=== PATIENT | male | born 1950 | race Caucasian/White ===

== ENCOUNTER → 2023-03-22 06:22 | Day surgery (SDC) | payer MEDICARE, SELFPAY | LOC: GI 06:22 | PROVIDERS: ATTENDING PHYSICIAN Internal Medicine Gastroenterology | DX: K29.70 Gastritis, unspecified, without bleeding (principal); K20.90 Esophagitis, unspecified without bleeding; K44.9 Diaphragmatic hernia without obstruction or gangrene; Z87.19 Personal history of other diseases of the digestive system | CPT/HCPCS: 43239; 88305 ==

== ENCOUNTER 2023-06-07 10:05 | Emergency (ER) | payer MEDICARE, SELFPAY ==
[2023-06-07 10:11] VITALS: BP 134/70
--- NOTE | 2023-06-07 11:34 | ED.GENMED ---
History of Present Illness
General
Chief Complaint: Back Pain
Source: patient
Time Seen by Provider: 06/07/23 11:17
Travel History
Have you had any contact with someone who has COVID-19?: No
Do you have any symptoms of coronavirus? Fever > 100 degrees, chills, cough, shortness of breath, sore throat, loss of taste or smell, muscle aches, or headache?: No
History of Present Illness
History of Present Illness:
73-year-old male presents complaining of ongoing left lower back pain starting 4 weeks ago after lifting a gas grill. He has been doing physical therapy through the family doctor without relief. It does tend to get better after stretching. No leg
discomfort. No bowel or bladder dysfunction. No fever. No other complaints at this time.
Past History
Past History
ED Past Medical History: Cancer (prostate, s/p xrt), GERD, HTN and Hypercholesterolemia
Social History
Tobacco: Non-smoker
Personal:
Living: with family
Phy Exam
Physical Exam
Physical Exam:
General: Well-appearing comfortable male no acute respiratory distress
HEENT: Normocephalic atraumatic
Musculoskeletal exam: Lumbar spine is nontender over the midline. Good range of motion bilateral lower extremities
Neurologic: Good sensation bilateral lower extremities. Bilateral patellar reflexes are 2+ negative straight leg raise normal gait
Vascular: 2+ dorsalis pedis pulse bilateral feet
Skin is warm no rash or lesion
Course
Orders/Labs/Results
Orders:
Orders
06/07/23 11:04
Lumbar Spine Complete, 4 View [CR Lumbar Spine Comp Min 4 Vw*] Urgent
Comment:
Reason For Exam: lower back pain
Vital Signs
Initial and Last Documented VS:
Initial Vital Signs
Temp Pulse Resp BP Pulse Ox
97.9 F 74 18 134/70 98
06/07/23 10:11 06/07/23 10:11 06/07/23 10:11 06/07/23 10:11 06/07/23 10:11
Last Documented Vital Signs
Temp Pulse Resp BP Pulse Ox
97.9 F 74 18 134/70 98
06/07/23 10:11 06/07/23 10:11 06/07/23 10:11 06/07/23 10:11 06/07/23 10:11
MDM/Problems Addressed
Differential Diagnosis Includes:
Low back pain after lifting heavy item. Consider lumbar strain versus compression fracture versus degenerative disc disease
No neurologic findings or red flags to suggest cauda equina. No fever to suggest infectious source. Physical therapy not helping
X-rays lumbar spine pending.
*Critical Care Note
Total Time (30-74mins, 75-104mins- exclusive of procedures): Not Applicable
Update Note
Update Note:
X-rays personally visualized demonstrate anterior listhesis of L5 on S1. Patient is neurologically intact he is ambulatory. Suspect this may be a source of the patient's back discomfort. Recommended follow-up with orthopedics. Stable for
discharge
ED Attending Note
-
Portions of this chart may have been created with voice recognition software.� Occasional wrong word or��sound alike� substitutions may have occurred due to the inherent limitations of voice recognition software.
Discharge Plan
Departure
Patient Disposition: Home (Routine Discharge)
Date of Disposition: 06/07/23
Time of Disposition: 12:37
Patient with high blood pressure during this ER visit?: No
Discharge Problem:
Low back pain
Instructions: Low Back Pain (DC)
Referrals:
Christiano Etienne, [Family Provider] -
Chance Chatman MD [Active] -
Activity Restrictions/Additional Instructions:
Please follow-up with orthopedics for further evaluation. Continue with stretches and Tylenol.
Interventions
Interventions:
*Risk Screen - Suicide Last Done: 06/07/23 11:15
*General Assessment Last Done: 06/07/23 11:15
*Neglect/Abuse Screening Last Done: 06/07/23 11:15
*ED COVID-19 Vaccine History Last Done: 06/07/23 10:11
ED-Musculoskeletal Assessment Last Done: 06/07/23 11:15
Discharge Date and Time
Print Language: CITIZEN OF [place]
[2023-06-07 12:46] VITALS: BP 128/64
== END 2023-06-07 12:47 | disposition home or self-care (01) ==
LOC: EMR 10:05
PROVIDERS: EMERGENCY PHYSICIAN Emergency Medicine; FAMILY PHYSICIAN Internal Medicine
DX: M54.50 Low back pain, unspecified (principal)
CPT/HCPCS: 99283; 72110

== ENCOUNTER → 2023-06-13 07:07 | Outpatient (REF) | payer MEDICARE, SELFPAY | LOC: MRI 07:07 | PROVIDERS: ATTENDING PHYSICIAN Pain Medicine Interventional Pain Medicine; FAMILY PHYSICIAN Internal Medicine | DX: M54.16 Radiculopathy, lumbar region (principal) | CPT/HCPCS: 72148 ==

== ENCOUNTER → 2023-07-23 15:10 | Outpatient (REF) | payer MEDICARE, SELFPAY | LOC: HWRAD 15:10 | PROVIDERS: ATTENDING PHYSICIAN Internal Medicine | DX: Z13.820 Encounter for screening for osteoporosis (principal); M81.0 Age-related osteoporosis without current pathological fracture | CPT/HCPCS: 77080 ==

== ENCOUNTER → 2023-11-01 14:51 | Outpatient (REF) | payer MEDICARE, SELFPAY ==
[2023-11-01 16:14] LABS: % Basophils 0.9 % (0-2); % Eosinophils 3.1 % (0-6); % Immature Granulocytes 0.6 % (0-0.5); % Lymphocytes 14.5 % (20.5-51.1); % Monocytes 16.9 % (1.7-9.3); Absolute Eosinophils 0.1 10^3/uL (0-0.7); Absolute Lymphocytes 0.5 10^3/uL (1.2-3.4); Absolute Monocytes 0.6 10^3/uL (0.1-0.6); Absolute Neutrophils 2.1 10^3/uL (1.4-6.5); Hematocrit 28.5 % (39.0-52.0); Hemoglobin 9.6 g/dL (13.0-18.0); Mean Corp Hgb Conc. 33.7 g/dL (33.0-37.0); Mean Corpuscular Hgb 27.7 pg (27.0-31.0); Mean Corpuscular Volume 82.4 fL (80.0-94.0); Mean Platelet Volume 8.8 fL (7.4-10.4); Nucleated Red Blood Cells % 0 % (-); Platelet Count 378 10^3/uL (130-400); Red Blood Cell Count 3.46 10^6/uL (4.70-6.10); Red Cell Dist. Width 15.7 % (11.5-14.5); White Blood Cell Count 3.3 10^3/uL (4.8-10.8)
[2023-11-01 16:54] LABS: Erythrocyte Sed Rate 25 mm/hour (0-20)
== END ==
LOC: REG 14:51
PROVIDERS: ATTENDING PHYSICIAN Physician Assistant Medical; FAMILY PHYSICIAN Family Medicine
DX: Z96.641 Presence of right artificial hip joint (principal)
CPT/HCPCS: 36415; 85025; 85652; 86140

== ENCOUNTER → 2023-11-05 09:21 | Outpatient (REF) | payer MEDICARE, SELFPAY ==
[2023-11-05 09:53] LABS: % Basophils 0.7 % (0-2); % Eosinophils 2.6 % (0-6); % Immature Granulocytes 1.9 % (0-0.5); % Lymphocytes 13.9 % (20.5-51.1); % Neutrophils 63.9 % (42.2-75.2); Absolute Eosinophils 0.1 10^3/uL (0-0.7); Absolute Immature Granulocytes 0.1 10^3/uL (0-0.05); Absolute Lymphocytes 0.6 10^3/uL (1.2-3.4); Absolute Monocytes 0.7 10^3/uL (0.1-0.6); Absolute Neutrophils 2.7 10^3/uL (1.4-6.5); Hemoglobin 10.7 g/dL (13.0-18.0); Mean Corp Hgb Conc. 34.5 g/dL (33.0-37.0); Mean Corpuscular Hgb 28.8 pg (27.0-31.0); Mean Corpuscular Volume 83.3 fL (80.0-94.0); Mean Platelet Volume 8.3 fL (7.4-10.4); Nucleated Red Blood Cells % 0 % (-); Platelet Count 344 10^3/uL (130-400); Red Blood Cell Count 3.72 10^6/uL (4.70-6.10); White Blood Cell Count 4.2 10^3/uL (4.8-10.8)
[2023-11-05 10:19] LABS: Erythrocyte Sed Rate 29 mm/hour (0-20)
== END ==
LOC: REG 09:21
PROVIDERS: ATTENDING PHYSICIAN Physician Assistant Medical; FAMILY PHYSICIAN Family Medicine
DX: Z96.641 Presence of right artificial hip joint (principal)
CPT/HCPCS: 36415; 85025; 85652; 86140

== ENCOUNTER 2024-01-11 09:55 | Inpatient (IN) | payer MEDICARE, SELFPAY ==
[2024-01-11 05:18] VITALS: BP 101/63
[2024-01-11 06:33] LABS: % Basophils 0.7 % (0-2); % Eosinophils 2.7 % (0-6); % Immature Granulocytes 1.3 % (0-0.5); % Lymphocytes 8.7 % (20.5-51.1); % Monocytes 13.1 % (1.7-9.3); % Neutrophils 73.5 % (42.2-75.2); Absolute Eosinophils 0.1 10^3/uL (0-0.7); Absolute Immature Granulocytes 0.1 10^3/uL (0-0.05); Absolute Lymphocytes 0.4 10^3/uL (1.2-3.4); Absolute Monocytes 0.6 10^3/uL (0.1-0.6); Absolute Neutrophils 3.3 10^3/uL (1.4-6.5); Hematocrit 32.8 % (39.0-52.0); Hemoglobin 11.3 g/dL (13.0-18.0); Mean Corp Hgb Conc. 34.5 g/dL (33.0-37.0); Mean Corpuscular Hgb 27.6 pg (27.0-31.0); Mean Platelet Volume 8.6 fL (7.4-10.4); Nucleated Red Blood Cells % 0 % (-); Platelet Count 324 10^3/uL (130-400); Red Cell Dist. Width 12.7 % (11.5-14.5); White Blood Cell Count 4.5 10^3/uL (4.8-10.8)
[2024-01-11 06:48] LABS: ALT (SGPT) 17 U/L (0-50); AST (SGOT) 43 U/L (17-59); Albumin 3.4 g/dl (3.5-5.0); Alkaline Phosphatase 116 U/L (38-126); Blood Urea Nitrogen 25 mg/dl (9-20); Calcium 13.6 mg/dl (8.4-10.2); Carbon Dioxide 30 mmol/L (22-30); Chloride 89 mmol/L (98-107); Glucose 90 mg/dl (70-99); Magnesium 1.4 mg/dl (1.6-2.3); Phosphorus 3.4 mg/dl (2.5-4.5); Potassium 4.7 mmol/L (3.5-5.1); Sodium 129 mmol/L (135-145); Total Bilirubin 0.6 mg/dl (0.2-1.3); eGFR > 60.00
--- NOTE | 2024-01-11 07:07 | ED.GENMED ---
History of Present Illness
General
Chief Complaint: Abnormal Lab Value
Source: patient
Exam Limitations: none
Time Seen by Provider: 01/11/24 06:04
Nursing documentation reviewed up to this point in time: agreed with
History of Present Illness
History of Present Illness:
Pt presents to ED secondary to progressive weakness and weight loss over the past 2 months with decreased appetite. Pt followed up with his PCP where an outpatient blood work revealed elevated calcium level. Pt subsequently referred to ED for
further evaluation and treatment. Of note, patient is s/p hip replacement 2 months ago and had been taking calcium tablets due to osteoporosis until 3 months ago when it was discontinued at the recommendation of PCP. Denies fever. Denies recent
illness. Denies n/v/d. Denies recent travel. Denies previous history of similar symptoms. In addition, patient is c/o bilateral painless lump/swelling in his groin, worse when standing up, but resolves when laying down.
Past History
Past History
ED Past Medical History: Cancer (prostate, s/p xrt), GERD, HTN and Hypercholesterolemia
Social History
Tobacco: Non-smoker
Personal:
Living: with family
Review of Systems
Review of Systems
Allergies reviewed?: Yes
All Other Systems: ROS reviewed and negative except as documented in HPI and ROS
Constitutional: Reports weight loss; Denies fever, fatigue or chills
EENT: Reports no symptoms
Respiratory: Reports no symptoms
Cardiac: Reports no symptoms
ABD/GI: Reports no symptoms; Denies vomiting or diarrhea
: Reports no symptoms
Musculoskeletal: Reports no symptoms
Skin: Reports other (groin swelling)
Neurological: Reports weakness; Denies dizzy or headache
Phy Exam
Physical Exam
Physical Exam:
Physical Exam
General: no apparent distress, not acutely ill. afebrile. thin appearing
Head: nc/at. eomi
Neck: supple. no meningeal signs.
Heart: s1/s2 regular rate and rhythm, no murmur. equal radial pulses.
Lungs: no acute respiratory distress. clear bilaterally
Abdomen: normal bowel sounds. not tender.
Neuro: alert and oriented. no focal neurological deficits
Skin: no rash
Psychiatric: well kept. interactive and cooperative
Extremities: no edema. no calf tenderness.
Course
Orders/Labs/Results
Orders:
Orders
01/11/24 06:21
CBC/With Diff [Complete Blood Count/With Diff] Urgent
Comprehensive Metabolic Panel Urgent
Magnesium Urgent
Phosphorus Urgent
01/11/24 06:57
0.9% Sodium Chloride 500 ml [Nss] 500 ml IV BOLUS
01/11/24 09:06
Magnesium Sulfate 2 Gram/50 ml [Magnesium Sulfate] 2 gram in 50 ml IV NOW
01/11/24 09:15
0.9% Sodium Chloride 1000 ml [Nss] 1,000 ml IV 100 mls/hr
01/11/24 09:41
CT Chest/abd/pel W Iv Cont Routine
Comment:
Reason For Exam: ?cancer, hx of prostate can now w/ Ca 13.6
01/11/24 09:42
Admit/Transfer Patient As Directed
Co-Sign Provider:
Level of Care: Inpatient admission
Assign to:: Medical/Surgical
Physician / Group: sukhjinder iniguez
Diagnosis: Hypercalcemia
Reason for Hospitalization: Hypercalcemia
Expected length of stay greater than two midnights?: Yes
ELOS- Estimated Length of Stay in days: 2
I certify the patient meets the requirements for IP care: Yes
PRN Pain Medication Management As Directed
May give lesser potent ordered pain med per pt: Yes
preference::
Protocol:: Medication orders for pain may be administered in a
manner that supports deferring to patient preference
when the pt is:
- Requesting an ordered lesser potent pain medication.
Least to most potent pain medications are defined
as: acetaminophen < NSAID < tramadol < opioids
(morphine, oxycodone, hydromorphone).
- Requesting a lesser dose of the same medication IF
ORDERED.
- Requesting a less intrusive route of administration
if both routes are prescribed by the provider (PO <
IV).
01/11/24 09:44
Code Status As Directed
Resuscitation Status: Do not resuscitate
Reached after discussion with pt or family/Healthcare POA: Yes
01/11/24 09:45
DNR Bracelet Application ONCE
01/11/24 09:51
Iohexol [Omnipaque] See Protocol PO NOW STA
01/11/24 11:19
Intact PTH Includes Calcium Urgent
Ionized Calcium Urgent
PTH Related Peptide LC-MS/MS [S] Urgent
Abnormal Lab Results
01/11/24
06:21
WBC 4.5 L 10^3/uL
(4.8-10.8)
RBC 4.10 L 10^6/uL
(4.70-6.10)
Hgb 11.3 L g/dL
(13.0-18.0)
Hct 32.8 L %
(39.0-52.0)
Abs Immat Gran (auto) 0.1 H 10^3/uL
(0-0.05)
Absolute Lymphs (auto) 0.4 L 10^3/uL
(1.2-3.4)
Immature Gran % 1.3 H %
(0-0.5)
Lymphocytes % 8.7 L %
(20.5-51.1)
Monocytes % 13.1 H %
(1.7-9.3)
Sodium 129 L mmol/L
(135-145)
Chloride 89 L mmol/L
(98-107)
BUN 25 H mg/dl
(9-20)
Calcium 13.6 H* mg/dl
(8.4-10.2)
Magnesium 1.4 L mg/dl
(1.6-2.3)
Total Protein 6.0 L g/dl
(6.3-8.2)
Albumin 3.4 L g/dl
(3.5-5.0)
01/11/24 06:21
01/11/24 06:21
Vital Signs
Initial and Last Documented VS:
Initial Vital Signs
Temp Pulse Resp BP Pulse Ox
97.7 F 88 18 101/63 99
01/11/24 05:18 01/11/24 05:18 01/11/24 05:18 01/11/24 05:18 01/11/24 05:18
Last Documented Vital Signs
Temp Pulse Resp BP Pulse Ox
97.7 F 68 19 101/63 95
01/11/24 05:18 01/11/24 08:00 01/11/24 08:00 01/11/24 05:18 01/11/24 08:00
MDM/Problems Addressed
MDM/Problems Addressed:
Blood work reviewed, consistent with hypercalcemia. Patient's calcium level was 10.4 in December 2023. In light of patient's overall symptoms, including fatigue/weakness/unintentional weight loss, patient will be admitted for further evaluation
treatment.
*Critical Care Note
Total Time (30-74mins, 75-104mins- exclusive of procedures): Not Applicable
ED Attending Note
-
Portions of this chart may have been created with voice recognition software.� Occasional wrong word or��sound alike� substitutions may have occurred due to the inherent limitations of voice recognition software.
Discharge Plan
Departure
Patient Disposition: Admit
Date of Disposition: 01/11/24
Time of Disposition: 07:19
Presentation/result/management discussed w/ accepting MD/DO: Hospitalist
Discharge Problem:
Hypercalcemia
Interventions
Interventions:
*Risk Screen - Suicide Last Done: 01/11/24 05:18
*General Assessment Last Done: 01/11/24 05:18
*Neglect/Abuse Screening Last Done: 01/11/24 05:18
ED- Fall Risk Assessment Last Done: 01/11/24 05:18
*ED COVID-19 Vaccine History Last Done: 01/11/24 05:28
[2024-01-11] MEDS: NSS 500 IV (07:24)
--- NOTE | 2024-01-11 09:14 | HPS.HSE ---
Family Physician
-
Family Physician: Yoly Roth
Chief Complaint
-
Abnormal lab values
History of Present Illness
74-year-old male with a past medical history of hypertension, hyperlipidemia, GERD, osteoarthritis, and prostate cancer status post radiation was told by his PCP to come to the ER for abnormal lab values. Patient reports having a 2-3-week history
of weakness. He has lost 15 pounds. Reports early satiety and night sweats. No fever. No chest pain, no shortness of breath. No nausea, no vomiting. No black or bloody stools. No dysuria.
Medical History
Past Medical History
Past Medical History: Reports Other
Additional Past Medical History:
Hyponatremia, osteoporosis, arthritis, prostate cancer s/p XRT, basal cell cancer removed from the nose, GERD, Vargas's esophagus, hiatal hernia, hyperlipidemia, L3 fracture
Past Surgical History: Reports Other
Additional Past Surgical History:
Right total hip arthroplasty, Moh's surgery for basel cell of the nose, hernia repair
Social History
Tobacco: Former Smoker
Alcohol: Former
Drug: None
Personal:
Living: With Family
Family History
Family History: Not pertinent
Allergies / Home Medications
Allergies reflects when Allergies were last updated in [facility].
Home Medications with original date entered in [facility]
Allergy/Medication List:
Allergies
Allergy/AdvReac Type Severity Reaction Status Date / Time
No Known Allergies Allergy Verified 01/11/24 05:17
Review of Systems
-
A 12 point ROS was completed and negative except as noted: Yes
Physical Exam
Vital Signs
Vital Signs
Temp Pulse Resp BP Pulse Ox
97.7 F 68 19 101/63 95
01/11/24 05:18 01/11/24 08:00 01/11/24 08:00 01/11/24 05:18 01/11/24 08:00
Physical Exam
General: No Apparent Distress
HEENT: NormoCephalic, Anicteric and Moist mucous membranes
Respiratory: Clear
Cardiac: S1/S2 and Regular Rhythm
GI: Soft, Non Tender, Non Distended and Normal Bowel Sounds
Musculoskeletal: No Clubbing, No Cyanosis and No Edema
Skin: Warm and Dry
Neuro: Awake, Alert and Oriented
Psych: Calm
Laboratory Results
-
01/11/24 06:21
01/11/24 06:21
Laboratory Results
Total Bilirubin 0.6 mg/dl (0.2-1.3) 01/11/24 06:21
AST 43 U/L (17-59) 01/11/24 06:21
ALT 17 U/L (0-50) 01/11/24 06:21
Alkaline Phosphatase 116 U/L (38-126) 01/11/24 06:21
Impression/Plan
-
HPI: 74-year-old male with a past medical history of hypertension, hyperlipidemia, GERD, osteoarthritis, and prostate cancer status post radiation was told by his PCP to come to the ER for abnormal lab values. Patient reports having a 2-3-week
history of weakness. He has lost 15 pounds. Reports early satiety and night sweats. No fever. No chest pain, no shortness of breath. No nausea, no vomiting. No black or bloody stools. No dysuria.
#Hypercalcemia concerning for malignancy
Treat with IV fluids, consult nephrology, patient getting a dose of pamidronate [address] chest abdomen and pelvis to look for malignancy
Check PTH intact, PTH related peptide, ionized calcium
Trend calcium
#Chronic hyponatremia
Check TSH and cortisol, urine studies
Encourage solute intake
Fluid restrict, trend sodium
#History of hypertension
Blood pressure soft, hold lisinopril 20 mg daily
May continue amlodipine 10 mg daily
#GERD
#Vargas's esophagus
Continue PPI, Pepcid
#Hyperlipidemia
Continue statin
#History of prostate cancer status post radiation
DVT prophylaxis�subcu Lovenox
DNR confirmed with patient upon admission
Total time spent to see the patient on the floor, examine the patient, review data and lab results, discuss treatment plan with patient, nursing staff around 76 minutes.
[2024-01-11] MEDS: MAGNESIUM SULFATE 50 IV (09:23)
--- NOTE | 2024-01-11 09:44 | W.CON.NEPH ---
Consultation
-
Date/Time Consultation Requested: 01/11/24899
Date/Time Consultation Performed: 01/11/24929
Requesting Provider: Charles Heaton Do
Performing Provider: Kerry Wilburn
Reason for Consultation: Hypercalcemia
Medical History
-
Chief Complaint: abnormal labs, high murray
History of Present Illness:
74-year-old male who has history of hypertension on amlodipine, benazepril, hyperlipidemia on pravastatin, Osteoporosis with her back compression fracture, arthritis on Celicoxib, who also had hip replacement 2 months ago has been followed up with
his primary( new) noted to have worsening hypercalcemia hence referred to the ER. Patient reports known hypercalcemia at least for last 2 months and he was asked to stop all his calcium meds which she hasn't taken in since then. He also reports to
have chronic hyponatremia and supposed to be on 48 ounces of fluids per day. For the last 2-3 months his appetite is poor and lost 15 pounds of weight. He denies any nausea vomiting or constipation. He in fact has runs of diarrhea as soon as he
eats some thing. . Denies any dizziness or lightheadedness however he had fallen at home yesterday the bruising is back. has chronic low back pain. He denies any chest pain or shortness of breath or coughing. No abdominal pain or lower extremity
edema. Denies any dysuria. She noted to have left inguinal hernia. On today's labs his calcium noted to be at 13.6(december was 10.4, na 127, cr 0.7), sodium 129, creatinine 1.2. , mg 1.4. He completed 1 L of normal saline. Blood pressure
101/63.
Past Medical History
hyponatremia, osteoporosis, arthritis, prostate cancer s/p XRT, basal cell cancer removed from the nose, GERD, Vargas's esophagus, hiatal hernia, hyperlipidemia
Past Surgical History: Other ( had hernia repair with mesh, cataract)
Social History
Tobacco: Non-Smoker
Alcohol: Occasional
Drug: None
Personal:
Living: With Family
Employment: Employed (works as CPA)
Family History
no CKD
unknown cncer
Family History: Not Pertinent
Allergies / Home Medications
Allergy/AdvReac Type Severity Reaction Status Date / Time
No Known Allergies Allergy Verified 01/11/24 05:17
�Medication �Instructions �Recorded �Confirmed �Type
amlodipine 10 mg tablet 10 mg PO DAILY 01/11/24 01/11/24 History
benazepril 20 mg tablet 20 mg PO DAILY 01/11/24 01/11/24 History
celecoxib 200 mg capsule 200 mg PO BID 01/11/24 01/11/24 History
cholecalciferol (vitamin D3) 50 50 mcg PO DAILY 01/11/24 01/11/24 History
mcg (2,000 unit) tablet (Vitamin
D3)
famotidine 20 mg tablet 20 mg PO HS 01/11/24 01/11/24 History
folic acid 400 mcg tablet 0.4 mg PO BID 01/11/24 01/11/24 History
omeprazole 20 mg capsule,delayed 20 mg PO DAILY 01/11/24 01/11/24 History
release
pravastatin 20 mg tablet 20 mg PO DAILY 01/11/24 01/11/24 History
Review of Systems
-
All complete 12 point review of system have been inquired and found negative other than stated in HPI
Physical Exam
Vital Signs
Vital Signs
Temp Pulse Resp BP Pulse Ox
97.7 F 68 19 101/63 95
01/11/24 05:18 01/11/24 08:00 01/11/24 08:00 01/11/24 05:18 01/11/24 08:00
Lab Results
WBC 4.5 10^3/uL (4.8-10.8) L 01/11/24 06:21
RBC 4.10 10^6/uL (4.70-6.10) L 01/11/24 06:21
Hgb 11.3 g/dL (13.0-18.0) L 01/11/24 06:21
Hct 32.8 % (39.0-52.0) L 01/11/24 06:21
Plt Count 324 10^3/uL (130-400) 01/11/24 06:21
Sodium 129 mmol/L (135-145) L 01/11/24 06:21
Potassium 4.7 mmol/L (3.5-5.1) 01/11/24 06:21
Chloride 89 mmol/L (98-107) L 01/11/24 06:21
Carbon Dioxide 30 mmol/L (22-30) 01/11/24 06:21
BUN 25 mg/dl (9-20) H 01/11/24 06:21
Creatinine 1.2 mg/dL (0.7-1.3) 01/11/24 06:21
eGFR > 60.00 01/11/24 06:21
Glucose 90 mg/dl (70-99) 01/11/24 06:21
Phosphorus 3.4 mg/dl (2.5-4.5) 01/11/24 06:21
Albumin 3.4 g/dl (3.5-5.0) L 01/11/24 06:21
01/09/24: from [facility]
Serum osmolar at 257, Osmo urine 377, urine sodium less than 20, PTH 2
Sodium 126, bicarbonate 19, calcium of 13.2, creatinine 1, BUN 14, potassium 4.9
Physical Exam
General: Awake, Alert, Oriented, AOx3, No Distress and Nontoxic
HEENT: EOMI, Anicteric, Ear/Nose Intact, Facial Symmetry, Neck Supple and No JVD
Respiratory: Clear, Normal Excursion and Nonlabored Respirations
Cardiac: S1/S2 and Regular Rate/Rhythm
Breast: Deferred by me
Abdomen: Soft, Nontender and Nondistended
Musculoskeletal: No Cyanosis, No Edema and Other (kyphosis noted)
Skin: No Rash
Neuro: Nonfocal/Grossly Intact
Psych: Mood/afflect pleasant, Insight/judgement good and Appropriate
Data Reviewed
-
Labs: Labs Reviewed by me, Discussed with Physician, Discussed with Patient and Discussed with Family
Assessment/Plan
-
IMP:
Hypercalcemia
Hyponatremia
Hypomagnesemia
mild MARISELA-baseline cr 0.7
Anemia
History of hypertension
Hyperlipidemia
Arthritis
History of hip replacement 2 months ago
Vargas's esophagus
Hiatal hernia
Left inguinal hernia
PLan:
A/w worsening hypercalcemia found in out pt labs
PTH was suppressed appropriately, PTH RP ordered
Will also check paraprotein workup
Given his unintentional weight loss would like to check CT to rule out any occult malignancy
Continue IV fluids with normal saline, repeat labs later today
Will give a dose of pamidronate 60 mg
Hyponatremia chronic, ADH mediated urine aspirated was elevated from labs 01/08 in the [facility]
Likely check TSH and cortisol. Encourage solute intake
Fluid restriction of 48 ounces per day, If sodium decreasing consider 3% saline
Mild MARISELA:Expect to improve with the fluid resuscitation
Suspect prerenal, check UA, urine PCR
Blood pressures are soft, hold antihypertensives
Replace magnesium
Avoid nephrotoxins including NSAIDs. hold Vit D meds
Discussed with the patient and the at bedside
Discussed with the primary
[2024-01-11] MEDS: OMNIPAQUE 50 ML PO (10:12)
[2024-01-11] MEDS: NSS 1000 IV ×2 (11:25→21:23)
[2024-01-11 11:41] LABS: Ionized Calcium 1.92 mMOL/L (1.15-1.33)
[2024-01-11 11:50] LABS: Calcium 12.9 mg/dl (8.4-10.2)
[2024-01-11 15:14] VITALS: BP 128/63
[2024-01-11] MEDS: AREDIA 270 MG IV (15:14)
[2024-01-11] MEDS: NORVASC 10 MG PO (15:14)
[2024-01-11 15:15] VITALS: BMI 17.9
[2024-01-11] MEDS: PRAVACHOL 20 MG PO (15:15)
[2024-01-11 17:09] VITALS: BMI 17.9
[2024-01-11] MEDS: LOVENOX 40 MG SC (17:50)
[2024-01-11 18:00] LABS: Intact PTH < 3.4 pg/ml (13.6-85.8)
[2024-01-11 18:19] LABS: Urine Albumin Negative (Neg - Trace); Urine Bilirubin Negative (Negative); Urine Character Clear (Clear); Urine Color Yellow; Urine Glucose Negative (Negative); Urine Ketone Negative (Negative); Urine Leukocyte Negative (Negative); Urine Nitrite Negative (Negative); Urine Occult Blood Negative (Negative); Urine Specific Gravity 1.015 (<1.030); Urine Urobilinogen Negative (Neg - 1+); Urine pH 6.5 (5.0-9.0)
[2024-01-11 18:33] LABS: Osmolality Urine 365 mOsm/kg (300-900)
[2024-01-11 18:48] LABS: Protein/creatinine Ratio 0.2; Urine Protein 8 mg/dl; Urine Sodium 34 mmol/L (30-90)
[2024-01-11] MEDS: FOLVITE 0.4 MG PO (21:23)
[2024-01-11] MEDS: PEPCID 20 MG PO (21:23)
[2024-01-11 23:50] VITALS: BP 132/65
[2024-01-12] MEDS: NSS 1000 IV (06:29)
[2024-01-12 06:57] LABS: Hematocrit 29.5 % (39.0-52.0); Hemoglobin 9.8 g/dL (13.0-18.0); Mean Corp Hgb Conc. 33.2 g/dL (33.0-37.0); Mean Corpuscular Hgb 27.2 pg (27.0-31.0); Mean Corpuscular Volume 81.9 fL (80.0-94.0); Mean Platelet Volume 8.4 fL (7.4-10.4); Platelet Count 275 10^3/uL (130-400); Red Cell Dist. Width 12.6 % (11.5-14.5); White Blood Cell Count 3.2 10^3/uL (4.8-10.8)
[2024-01-12 07:12] LABS: Ionized Calcium 1.83 mMOL/L (1.15-1.33)
[2024-01-12 07:30] VITALS: BP 125/68
[2024-01-12 07:41] LABS: Blood Urea Nitrogen 16 mg/dl (9-20); Calcium 12.2 mg/dl (8.4-10.2); Carbon Dioxide 26 mmol/L (22-30); Chloride 95 mmol/L (98-107); Estimated Creatinine Clearance 53 ml/min; Glucose 61 mg/dl (70-99); Magnesium 1.4 mg/dl (1.6-2.3); Potassium 4.2 mmol/L (3.5-5.1); Sodium 130 mmol/L (135-145); eGFR > 60.00
[2024-01-12 08:03] LABS: Cortisol, Random 16.1 ug/dl; TSH 0.89 uIU/ml (0.47-4.68)
--- NOTE | 2024-01-12 08:39 | W.PN.HOSP.TC ---
Today's Communication/Plan
-
see bold
Assessment / Plan
Assessment / Plan
HPI: 74-year-old male with a past medical history of hypertension, hyperlipidemia, GERD, osteoarthritis, and prostate cancer status post radiation was told by his PCP to come to the ER for abnormal lab values. Patient reports having a 2-3-week
history of weakness. He has lost 15 pounds. Reports early satiety and night sweats. No fever. No chest pain, no shortness of breath. No nausea, no vomiting. No black or bloody stools. No dysuria.
#Hypercalcemia of malignancy
Appreciate nephrology input, status post pamidronate 01/10
Continue IV fluids, follow-up on PTH related peptide
#Soft tissue mass of the right hip
Appreciate oncology input, plan for biopsy by IR on Saturday 01/13
PSA normal
#Chronic hyponatremia
TSH and cortisol normal, suspect secondary to poor solute intake
Encourage solute intake
Fluid restrict, trend sodium
#History of hypertension
Blood pressure soft, hold lisinopril 20 mg daily
May continue amlodipine 10 mg daily
#Hypomagnesemia
Continue to replete by IV, recheck a.m. labs
#GERD
#Vargas's esophagus
Continue PPI, Pepcid
#Hyperlipidemia
Continue statin
#Underweight
#Moderate protein calorie malnutrition
Continue protein supplements
#History of prostate cancer status post radiation
DVT prophylaxis�subcu Lovenox
DNR confirmed with patient upon admission
Updated patient and 01/11
Total time spent to see the patient on the floor, examine the patient, review data and lab results, discuss treatment plan with patient, nursing staff around 51 minutes.
Physical Exam
General: No acute distress
HEENT: Normocephalic, Atraumatic, EOMI, MMM
Respiratory: Clear to Auscultation bilaterally
Cardiac: Normal S1/S2, Regular Rate and Rhythm
GI: Soft, Nontender, Nondistended, Normal Bowel Sounds, mildly palpable mass in right lower quadrant
Extremities: No Clubbing, Cyanosis, or Edema
Neuro: Nonfocal/Grossly Intact
Psych: Calm, Cooperative
Anticipated Discharge: > 48 hours
Subjective/Interval History
-
Date of Service: January 12, 2024
Patient reports his weakness is mildly improved. He continues to have a poor appetite. No fever, no vomiting. No chest pain, no shortness of breath.
Objective Data
-
Labs:
Laboratory Results
01/12/24 01/12/24
06:46 06:47
WBC 3.2 L
Hgb 9.8 L
Hct 29.5 L
Plt Count 275
Sodium 130 L
Potassium 4.2
Chloride 95 L
Carbon Dioxide 26
BUN 16
Creatinine 0.8
Glucose 61 L
Calcium 12.2 H
Vital Signs:
Vital Signs
Temp Pulse Resp BP Pulse Ox
98.1 F 83 16 132/65 96
01/11/24 23:50 01/11/24 23:50 01/11/24 23:50 01/11/24 23:50 01/11/24 23:50
I&O
01/11/24 01/12/24 01/13/24
06:59 06:59 06:59
Intake Total 835 / 835
Balance 835 / 835
[2024-01-12] MEDS: PRAVACHOL 20 MG PO (09:08)
[2024-01-12] MEDS: MAGNESIUM SULFATE 100 IV (09:08)
[2024-01-12] MEDS: FOLVITE 0.4 MG PO ×2 (09:08→21:38)
[2024-01-12] MEDS: PROTONIX 40 MG PO (09:08)
[2024-01-12] MEDS: NORVASC 10 MG PO (09:08)
[2024-01-12 09:48] LABS: PSA, Total - Diagnostic 0.13 ng/ml (0.0-4.0)
--- NOTE | 2024-01-12 10:18 | CM ---
Patient admitted from home. Met with patient and his in room. He was independent prior to admit, still working. They live in 2 level home with 2 steps to enter. He has rolling walker, cane, hip kit, shower rails and shower bench from Hip
replacement surgery.
PCP Dr. Yoly Roth
PHarmacy: [facility]
PLAN: home no needs
--- NOTE | 2024-01-12 11:28 | CON.ONC ---
Impression
Impression
Hypercalcemia, status post pamidronate January 11, 2024
Large soft tissue mass involving the right hip
History of prostate cancer, current PSA 0.13
Plan
Plan
Biopsy of soft tissue mass is needed for diagnosis. IR consult placed
Monitor calcium, status post pamidronate on January 10
PSA is 0.13
Myeloma panel pending
Patient History
History of Present Illness
Oncology consultation regarding hypercalcemia and malignant appearing right hip mass
This is a 74-year-old man who underwent right hip replacement in late September 2023. Around that time he was also noted to have hypercalcemia, for which his oral calcium supplements were stopped. He reports ongoing weight loss, loss of appetite and
nausea, which started about a month prior to his hip replacement surgery. He was referred to the ER yesterday by his PCP for hypercalcemia. At that time he reported 2 to 3-week history of increasing weakness and night sweats. Calcium was 13.6.
He was given pamidronate and IV fluids, it is down to 12.[address] imaging shows a large heterogeneously enhancing soft tissue mass centered on the right iliac bone and acetabulum, and extending into the region of the right iliopsoas
muscle anteriorly and into the right gluteal musculature posteriorly. There is some bony destruction.
He denies leg swelling or leg pain. He had a fall a couple days ago, fell onto his shoulder, without significant trauma.
He has a history of prostate cancer 7 years ago, treated with radiation. PSA is 0.13.
Past-Medical/Surgical History
Past medical and surgical history as per the HPI, also includes osteoporosis, basal cell carcinoma, GERD, Vargas's esophagus, hyperlipidemia, hiatal hernia. In addition to right hip arthroplasty in late September 2023, he also underwent Mohs surgery
to the nose and hernia repair
Social history: He is a former smoker, former alcohol use. He is .
Family history: Noncontributory
Patient Medication
�Medication �Instructions �Recorded �Confirmed �Last Taken �Type
amlodipine 10 mg tablet 10 mg PO DAILY 01/11/24 01/11/24 Unknown History
benazepril 20 mg tablet 20 mg PO DAILY 01/11/24 01/11/24 Unknown History
celecoxib 200 mg capsule 200 mg PO BID 01/11/24 01/11/24 Unknown History
cholecalciferol (vitamin D3) 50 50 mcg PO DAILY 01/11/24 01/11/24 Unknown History
mcg (2,000 unit) tablet (Vitamin
D3)
famotidine 20 mg tablet 20 mg PO HS 01/11/24 01/11/24 Unknown History
folic acid 400 mcg tablet 0.4 mg PO BID 01/11/24 01/11/24 Unknown History
omeprazole 20 mg capsule,delayed 20 mg PO DAILY 01/11/24 01/11/24 Unknown History
release
pravastatin 20 mg tablet 20 mg PO DAILY 01/11/24 01/11/24 Unknown History
Active Medications
Generic Name Dose Route Start Last Admin
Trade Name Freq PRN Reason Stop Dose Admin
Acetaminophen 650 mg 01/11/24 14:44
Acetaminophen 325 Mg Tablet PO 02/08/24 14:43
Q4HPRN PRN
mild pain/AMARAL/temp> 100.4F
Amlodipine Besylate 10 mg 01/11/24 14:44 01/12/24 09:08
Amlodipine 10 Mg Tablet PO 02/08/24 14:43 10 mg
DAILY SOPHIA Administration
Enoxaparin Sodium 40 mg 01/11/24 18:00 01/11/24 17:50
Enoxaparin Sodium 40 Mg/0.4 Ml Syringe SC 02/08/24 17:59 40 mg
QPM SOPHIA Administration
Famotidine 20 mg 01/11/24 22:00 01/11/24 21:23
Famotidine 20 Mg Tablet PO 02/08/24 21:59 20 mg
HS SOPHIA Administration
Folic Acid 0.4 mg 01/11/24 20:00 01/12/24 09:08
Folic Acid 0.4 Mg Tablet PO 02/08/24 19:59 0.4 mg
BID SOPHIA Administration
Sodium Chloride 1,000 mls @ 100 mls/hr 01/11/24 09:15 01/12/24 06:29
Nss IV 1,000 mls
.Q10H SOPHIA Administration
Magnesium Sulfate 4 gram in 100 mls @ 25 mls/hr 01/12/24 08:40 01/12/24 09:08
Magnesium Sulfate IV 01/12/24 12:39 100 mls
NOW STA Administration
Ondansetron HCl 4 mg 01/11/24 14:44
Ondansetron 4 Mg/2 Ml Vial IV 02/08/24 14:43
Q6HPRN PRN
nausea and vomiting
Oxycodone HCl 5 mg 01/11/24 14:44
Oxycodone 5 Mg Regular Release Tablet PO 01/25/24 14:43
Q4HPRN PRN
moderate pain
Pantoprazole Sodium 40 mg 01/12/24 08:00 01/12/24 09:08
Pantoprazole 40 Mg Delayed Release Tablet PO 02/09/24 07:59 40 mg
DAILY SOPHIA Administration
Polyethylene Glycol 17 grams 01/11/24 14:44
Polyethylene Glycol Powder 17 Grams Packet PO 02/08/24 14:43
DAILYPRN PRN
constipation
Pravastatin Sodium 20 mg 01/11/24 14:44 01/12/24 09:08
Pravastatin 20 Mg Tablet PO 02/08/24 14:43 20 mg
DAILY SOPHIA Administration
Sodium Chloride 0 flush 01/11/24 15:00
Sodium Chloride 0.9% (Flush) Syringe IV 02/08/24 14:59
PER PROTOCOL SOPHIA
Physical Exam
-
General: No Apparent Distress
HEENT: Negative Jaundice
GI: Soft and Flat
Musculoskeletal: No Clubbing, No Cyanosis and No Edema
Extremities: No C/C/E
Neurology: Non Focal, No Lateralizing Symptoms and No Word Finding Difficulty
Skin: Warm and Dry
Hematologic / Lymphatic: No Lymphadenopathy
Psych: Calm and Intact Judgement/Insight
Labs
Lab Results
WBC 3.2 10^3/uL (4.8-10.8) L 01/12/24 06:47
RBC 3.60 10^6/uL (4.70-6.10) L 01/12/24 06:47
Hgb 9.8 g/dL (13.0-18.0) L 01/12/24 06:47
Hct 29.5 % (39.0-52.0) L 01/12/24 06:47
MCV 81.9 fL (80.0-94.0) 01/12/24 06:47
MCH 27.2 pg (27.0-31.0) 01/12/24 06:47
MCHC 33.2 g/dL (33.0-37.0) 01/12/24 06:47
RDW 12.6 % (11.5-14.5) 01/12/24 06:47
Plt Count 275 10^3/uL (130-400) 01/12/24 06:47
MPV 8.4 fL (7.4-10.4) 01/12/24 06:47
Abs Immat Gran (auto) 0.1 10^3/uL (0-0.05) H 01/11/24 06:21
Absolute Neuts (auto) 3.3 10^3/uL (1.4-6.5) 01/11/24 06:21
Absolute Lymphs (auto) 0.4 10^3/uL (1.2-3.4) L 01/11/24 06:21
Absolute Monos (auto) 0.6 10^3/uL (0.1-0.6) 01/11/24 06:21
Absolute Eos (auto) 0.1 10^3/uL (0-0.7) 01/11/24 06:21
Absolute Basos (auto) 0.0 10^3/uL (0-0.2) 01/11/24 06:21
Immature Gran % 1.3 % (0-0.5) H 01/11/24 06:21
Neutrophils % 73.5 % (42.2-75.2) 01/11/24 06:21
Lymphocytes % 8.7 % (20.5-51.1) L 01/11/24 06:21
Monocytes % 13.1 % (1.7-9.3) H 01/11/24 06:21
Eosinophils % 2.7 % (0-6) 01/11/24 06:21
Basophils % 0.7 % (0-2) 01/11/24 06:21
Creatinine 0.8 mg/dL (0.7-1.3) 01/12/24 06:46
Vital Signs
Vital Signs
Temp Pulse Resp BP Pulse Ox
97.3 F 85 16 125/68 99
01/12/24 07:30 01/12/24 07:30 01/12/24 07:30 01/12/24 07:30 01/12/24 07:30
[2024-01-12 11:57] LABS: Glucose - Point of Care 100 mg/dl (70-99)
[2024-01-12 15:55] VITALS: BP 132/64
--- NOTE | 2024-01-12 17:02 | W.PN.NEPH.PH ---
Today's Communication / Plan
-
cotn IVF , follow labs in am
Assessment/Plan
-
IMP:
Hypercalcemia
Hyponatremia
Hypomagnesemia
mild MARISELA-baseline cr 0.7
Anemia
History of hypertension
Hyperlipidemia
Arthritis
History of hip replacement 2 months ago
Vargas's esophagus
Hiatal hernia
Left inguinal hernia
PLan:
A/w worsening hypercalcemia found in out pt labs
PTH was suppressed appropriately, PTH RP, paraprotein w/u pending
CT shows large right pelvic mass, considering biopsy per Onc
Continue IV fluids with normal saline
murray improving s/p pamidronate 60 mg on 01/10
Hyponatremia chronic, ADH mediated from malignacny
TSH and cortisol were ok. Encourage solute intake
Fluid restriction of 48 ounces per day
Mild MARISELA:cr better at 0.8
Suspect prerenal, bland UA, urine PCR only 0.2gm/gm of cr
Blood stable, hold ACEI
Replace magnesium
hold Vit D and murray meds
Discussed with the patient and the at bedside
Discussed with the primary
-
-
Date of Service: January 12, 2024
CC / HPI / ROS
-
Chief Complaint:
MARISELA, hypercalcemia
History of Present Illness:
murray better at 12 range, cr better 0.8
BP stable, no fever
sodium [address] noted pelvic mass
Review of Systems:
no cp or sob
no n/v
Labs
-
Labs:
WBC 3.2 10^3/uL (4.8-10.8) L 01/12/24 06:47
RBC 3.60 10^6/uL (4.70-6.10) L 01/12/24 06:47
Hgb 9.8 g/dL (13.0-18.0) L 01/12/24 06:47
Hct 29.5 % (39.0-52.0) L 01/12/24 06:47
Plt Count 275 10^3/uL (130-400) 01/12/24 06:47
Sodium 130 mmol/L (135-145) L 01/12/24 06:46
Potassium 4.2 mmol/L (3.5-5.1) 01/12/24 06:46
Chloride 95 mmol/L (98-107) L 01/12/24 06:46
Carbon Dioxide 26 mmol/L (22-30) 01/12/24 06:46
BUN 16 mg/dl (9-20) 01/12/24 06:46
Creatinine 0.8 mg/dL (0.7-1.3) 01/12/24 06:46
eGFR > 60.00 01/12/24 06:46
Glucose 61 mg/dl (70-99) L 01/12/24 06:46
Calcium 12.2 mg/dl (8.4-10.2) H 01/12/24 06:46
Phosphorus 3.0 mg/dl (2.5-4.5) 01/12/24 06:46
Albumin 3.4 g/dl (3.5-5.0) L 01/11/24 06:21
Physical Exam
-
Vital Signs:
Vital Signs
Temp Pulse Resp BP Pulse Ox
98.0 F 77 16 132/64 95
01/12/24 15:55 01/12/24 15:55 01/12/24 15:55 01/12/24 15:55 01/12/24 15:55
Cardiovascular:: Regular rate and rhythm
Respiratory:: Bilateral: CTA
Lung Excursion:: Normal
Abdomen:: Nontender and Soft
Extremity Edema:: None: Bilateral:
[place]esa Catheter: No
[2024-01-12] MEDS: LOVENOX 40 MG SC (17:03)
[2024-01-12] MEDS: NSS IV (19:24)
[2024-01-12] MEDS: PEPCID 20 MG PO (21:38)
[2024-01-12 23:30] VITALS: BP 128/68
[2024-01-13] MEDS: NSS 1000 IV ×2 (02:53→14:28)
[2024-01-13 05:28] LABS: Glucose - Point of Care 66 mg/dl (70-99)
[2024-01-13 05:50] LABS: Glucose - Point of Care 84 mg/dl (70-99)
[2024-01-13 07:21] LABS: Hematocrit 27.9 % (39.0-52.0); Hemoglobin 9.4 g/dL (13.0-18.0); Ionized Calcium 1.74 mMOL/L (1.15-1.33); Mean Corp Hgb Conc. 33.7 g/dL (33.0-37.0); Mean Corpuscular Hgb 27.5 pg (27.0-31.0); Mean Corpuscular Volume 81.6 fL (80.0-94.0); Mean Platelet Volume 8.4 fL (7.4-10.4); Platelet Count 271 10^3/uL (130-400); Red Blood Cell Count 3.42 10^6/uL (4.70-6.10); Red Cell Dist. Width 12.9 % (11.5-14.5); White Blood Cell Count 2.6 10^3/uL (4.8-10.8)
--- NOTE | 2024-01-13 07:47 | W.PN.HOSP.TC ---
Today's Communication/Plan
-
For right lower pelvic mass biopsy tomorrow by IR
Assessment / Plan
Assessment / Plan
HPI: 74-year-old male with a past medical history of hypertension, hyperlipidemia, GERD, osteoarthritis, and prostate cancer status post radiation was told by his PCP to come to the ER for abnormal lab values. Patient reports having a 2-3-week
history of weakness. He has lost 15 pounds. Reports early satiety and night sweats. No fever. No chest pain, no shortness of breath. No nausea, no vomiting. No black or bloody stools. No dysuria.
#Hypercalcemia of malignancy
Appreciate nephrology input, status post pamidronate 01/10
Continue IV fluids, follow-up on PTH related peptide
#Soft tissue mass of the right hip
Appreciate oncology input, plan for biopsy by IR on Saturday 01/13
PSA normal
#Chronic hyponatremia
TSH and cortisol normal, suspect secondary to poor solute intake
Encourage solute intake, continue management as per nephrology
Fluid restrict, trend sodium
#History of hypertension
Blood pressure soft, hold lisinopril 20 mg daily
May continue amlodipine 10 mg daily
#Hypomagnesemia
Repleted and resolved
#GERD
#Vargas's esophagus
Continue PPI, Pepcid
#Hyperlipidemia
Continue statin
#Underweight
#Moderate protein calorie malnutrition
Continue protein supplements - brings them in
#History of prostate cancer status post radiation
DVT prophylaxis�subcu Lovenox
DNR confirmed with patient upon admission
Updated patient and 01/11
Total time spent to see the patient on the floor, examine the patient, review data and lab results, discuss treatment plan with patient, nursing staff around 41 minutes.
Physical Exam
General: No acute distress
HEENT: Normocephalic, Atraumatic, EOMI, MMM
Respiratory: Clear to Auscultation bilaterally
Cardiac: Normal S1/S2, Regular Rate and Rhythm
GI: Soft, Nontender, Nondistended, Normal Bowel Sounds, mildly palpable mass in right lower quadrant
Extremities: No Clubbing, Cyanosis, or Edema
Neuro: Nonfocal/Grossly Intact
Psych: Calm, Cooperative
Anticipated Discharge: 24 - 48 hours
Subjective/Interval History
-
Date of Service: January 13, 2024
Patient reports his weakness is improved. His appetite remains poor. No fever, no vomiting. No chest pain, no shortness of breath.
Objective Data
-
Labs:
Laboratory Results
01/13/24
07:08
WBC 2.6 L
Hgb 9.4 L
Hct 27.9 L
Plt Count 271
Sodium Pending
Potassium Pending
Chloride Pending
Carbon Dioxide Pending
BUN Pending
Creatinine Pending
Glucose Pending
Calcium Pending
Vital Signs:
Vital Signs
Temp Pulse Resp BP Pulse Ox
97.5 F 84 16 128/68 95
01/12/24 23:30 01/12/24 23:30 01/12/24 23:30 01/12/24 23:30 01/12/24 23:30
I&O
01/12/24 01/13/24 01/14/24
06:59 06:59 06:59
Intake Total 835 / 835 1030 / 1030
Output Total 200 / 200 250 / 250
Balance 835 / 835 830 / 830 -250 / -250
[2024-01-13 07:55] VITALS: BP 122/66
[2024-01-13 08:04] LABS: Blood Urea Nitrogen 13 mg/dl (9-20); Calcium 11.7 mg/dl (8.4-10.2); Carbon Dioxide 25 mmol/L (22-30); Chloride 96 mmol/L (98-107); Estimated Creatinine Clearance 53 ml/min; Glucose 81 mg/dl (70-99); Magnesium 1.6 mg/dl (1.6-2.3); Phosphorus 2.5 mg/dl (2.5-4.5); Sodium 127 mmol/L (135-145); eGFR > 60.00
[2024-01-13 08:10] LABS: Potassium 4.1 mmol/L (3.5-5.1)
[2024-01-13] MEDS: PRAVACHOL 20 MG PO (08:39)
[2024-01-13] MEDS: PROTONIX 40 MG PO (08:39)
[2024-01-13] MEDS: NORVASC 10 MG PO (08:39)
[2024-01-13] MEDS: FOLVITE 0.4 MG PO ×2 (08:39→19:54)
[2024-01-13 14:00] VITALS: BP 124/59; BP 126/58; PULSE 77
--- NOTE | 2024-01-13 15:28 | W.PN.NEPH.PH ---
Today's Communication / Plan
-
lasix low dose for hyponatremia
cont IVF
Assessment/Plan
-
IMP:
Hypercalcemia
Hyponatremia
Hypomagnesemia
mild MARISELA-baseline cr 0.7
Anemia
History of hypertension
Hyperlipidemia
Arthritis
History of hip replacement 2 months ago
Vargas's esophagus
Hiatal hernia
Left inguinal hernia
PLan:
A/w worsening hypercalcemia found in out pt labs
PTH was suppressed appropriately, PTH RP, paraprotein w/u pending
CT shows large right pelvic mass, considering biopsy per Onc
Continue IV fluids with normal saline
murray improving s/p pamidronate 60 mg on 01/10
Hyponatremia chronic, ADH mediated from malignancy, sodium decreasing
TSH and cortisol were ok. Encourage solute intake
Fluid restriction of 48 ounces per day, lasix today
mild MATHEUS-resolved, Suspect prerenal, bland UA, urine PCR only 0.2gm/gm of cr
Blood stable, hold ACEI
Replaced magnesium
hold Vit D and murray meds
Discussed with the patient
-
-
Date of Service: January 13, 2024
CC / HPI / ROS
-
Chief Complaint:
MARISELA, hypercalcemia
History of Present Illness:
murray better at 11.7 range, cr better 0.8
BP stable, no fever
sodium down to [address] noted pelvic mass
Review of Systems:
no cp or sob
no n/v
Labs
-
Labs:
WBC 2.6 10^3/uL (4.8-10.8) L 01/13/24 07:08
RBC 3.42 10^6/uL (4.70-6.10) L 01/13/24 07:08
Hgb 9.4 g/dL (13.0-18.0) L 01/13/24 07:08
Hct 27.9 % (39.0-52.0) L 01/13/24 07:08
Plt Count 271 10^3/uL (130-400) 01/13/24 07:08
Sodium 127 mmol/L (135-145) L 01/13/24 07:08
Potassium 4.1 mmol/L (3.5-5.1) 01/13/24 07:08
Chloride 96 mmol/L (98-107) L 01/13/24 07:08
Carbon Dioxide 25 mmol/L (22-30) 01/13/24 07:08
BUN 13 mg/dl (9-20) 01/13/24 07:08
Creatinine 0.8 mg/dL (0.7-1.3) 01/13/24 07:08
eGFR > 60.00 01/13/24 07:08
Glucose 81 mg/dl (70-99) 01/13/24 07:08
Calcium 11.7 mg/dl (8.4-10.2) H 01/13/24 07:08
Phosphorus 2.5 mg/dl (2.5-4.5) 01/13/24 07:08
Albumin 3.4 g/dl (3.5-5.0) L 01/11/24 06:21
Physical Exam
-
Vital Signs:
Vital Signs
Temp Pulse Resp BP Pulse Ox
97.7 F 71 16 122/66 96
01/13/24 07:55 01/13/24 07:55 01/13/24 07:55 01/13/24 07:55 01/13/24 07:55
Cardiovascular:: Regular rate and rhythm
Respiratory:: Bilateral: CTA
Lung Excursion:: Normal
Abdomen:: Nontender and Soft (right pelvic mass)
Extremity Edema:: None: Bilateral:
[place]esa Catheter: No
[2024-01-13 15:30] VITALS: BP 120/57
[2024-01-13] MEDS: LASIX 20 MG PO (16:18)
[2024-01-13] MEDS: LOVENOX 40 MG SC (17:42)
[2024-01-13] MEDS: PEPCID 20 MG PO (19:54)
[2024-01-13 23:30] VITALS: BP 132/65
[2024-01-14] MEDS: NSS 1000 IV (04:28)
[2024-01-14 07:06] VITALS: BP 123/66
[2024-01-14 07:56] LABS: Hematocrit 30.8 % (39.0-52.0); Mean Corp Hgb Conc. 32.5 g/dL (33.0-37.0); Mean Corpuscular Hgb 26.7 pg (27.0-31.0); Mean Corpuscular Volume 82.1 fL (80.0-94.0); Mean Platelet Volume 8.5 fL (7.4-10.4); Platelet Count 268 10^3/uL (130-400); Red Blood Cell Count 3.75 10^6/uL (4.70-6.10); Red Cell Dist. Width 12.9 % (11.5-14.5)
[2024-01-14 07:59] LABS: Ionized Calcium 1.62 mMOL/L (1.15-1.33)
[2024-01-14] MEDS: NORVASC 10 MG PO (09:23)
[2024-01-14] MEDS: PROTONIX 40 MG PO (09:23)
[2024-01-14] MEDS: FOLVITE 0.4 MG PO ×2 (09:23→19:26)
[2024-01-14] MEDS: PRAVACHOL 20 MG PO (09:23)
[2024-01-14 09:40] LABS: Blood Urea Nitrogen 13 mg/dl (9-20); Calcium 11.1 mg/dl (8.4-10.2); Carbon Dioxide 24 mmol/L (22-30); Chloride 96 mmol/L (98-107); Estimated Creatinine Clearance 53 ml/min; Glucose 49 mg/dl (70-99); Magnesium 1.3 mg/dl (1.6-2.3); Phosphorus 2.2 mg/dl (2.5-4.5); Potassium 4.2 mmol/L (3.5-5.1); Sodium 129 mmol/L (135-145); eGFR > 60.00
[2024-01-14] MEDS: D5/0.9% SODIUM CHLORIDE 1000 IV (09:48)
--- NOTE | 2024-01-14 11:32 | W.PN.NEPH.PH ---
Today's Communication / Plan
-
Holding Lasix today
Follow-up from last liter fluid to be infused
Follow-up electrolytes tomorrow
Maintain fluid restriction
For inguinal groin biopsy today
Assessment/Plan
-
IMP:
Hypercalcemia
Hyponatremia
Hypomagnesemia
mild MARISELA-baseline cr 0.7
Anemia
History of hypertension
Hyperlipidemia
Arthritis
History of hip replacement 2 months ago
Vargas's esophagus
Hiatal hernia
Left inguinal hernia
PLan:
A/w worsening hypercalcemia found in out pt labs
Calcium down to 11.1
PTH was suppressed appropriately, PTH RP, paraprotein w/u pending
CT shows large right pelvic mass, considering biopsy per Onc
Continue IV fluids with normal saline
calcium improving s/p pamidronate 60 mg on 01/10
Hyponatremia chronic, ADH mediated from malignancy, sodium up to 129
TSH and cortisol were ok. Encourage solute intake
Fluid restriction of 48 ounces per day, lasix given yesterday
mild MATHEUS-resolved, Suspect prerenal, bland UA, urine PCR only 0.2gm/gm of cr
Blood pressur stable, hold ACEI
Replaced magnesium
holding Vit D and murray meds
Discussed with the patient
-
-
Date of Service: January 14, 2024
CC / HPI / ROS
-
Chief Complaint:
MARISELA, hypercalcemia
History of Present Illness:
murray better at 11.1 range, cr better 0.8
BP stable, no fever
sodium up to [address] noted pelvic mass
Review of Systems:
no cp or sob
no n/v
Labs
-
Labs:
WBC 3.0 10^3/uL (4.8-10.8) L 01/14/24 07:39
RBC 3.75 10^6/uL (4.70-6.10) L 01/14/24 07:39
Hgb 10.0 g/dL (13.0-18.0) L 01/14/24 07:39
Hct 30.8 % (39.0-52.0) L 01/14/24 07:39
Plt Count 268 10^3/uL (130-400) 01/14/24 07:39
Sodium 129 mmol/L (135-145) L 01/14/24 07:39
Potassium 4.2 mmol/L (3.5-5.1) 01/14/24 07:39
Chloride 96 mmol/L (98-107) L 01/14/24 07:39
Carbon Dioxide 24 mmol/L (22-30) 01/14/24 07:39
BUN 13 mg/dl (9-20) 01/14/24 07:39
Creatinine 0.8 mg/dL (0.7-1.3) 01/14/24 07:39
eGFR > 60.00 01/14/24 07:39
Glucose 49 mg/dl (70-99) L* 01/14/24 07:39
Calcium 11.1 mg/dl (8.4-10.2) H 01/14/24 07:39
Phosphorus 2.2 mg/dl (2.5-4.5) L 01/14/24 07:39
Albumin 3.4 g/dl (3.5-5.0) L 01/11/24 06:21
Physical Exam
-
Vital Signs:
Vital Signs
Temp Pulse Resp BP Pulse Ox
97.8 F 74 16 123/66 94
01/14/24 07:06 01/14/24 07:06 01/14/24 07:06 01/14/24 07:06 01/14/24 07:06
Cardiovascular:: Regular rate and rhythm
Respiratory:: Bilateral: CTA
Lung Excursion:: Normal
Abdomen:: Nontender and Soft (right pelvic mass)
Extremity Edema:: None: Bilateral:
[place]esa Catheter: No
--- NOTE | 2024-01-14 11:38 | W.PN.HOSP.TC ---
Today's Communication/Plan
-
dextrose gtt while NPO
c/w fluid restriction
Assessment / Plan
Assessment / Plan
HPI: 74-year-old male with a past medical history of hypertension, hyperlipidemia, GERD, osteoarthritis, and prostate cancer status post radiation was told by his PCP to come to the ER for abnormal lab values. Patient reports having a 2-3-week
history of weakness. He has lost 15 pounds. Reports early satiety and night sweats. No fever. No chest pain, no shortness of breath. No nausea, no vomiting. No black or bloody stools. No dysuria.
#Hypercalcemia of malignancy
Appreciate nephrology input, status post pamidronate 01/10
Continue IV fluids, follow-up on PTH related peptide
# hypomagnesemia
# Hypoglycemia
Give Dextrose gtt while NPO
#Soft tissue mass of the right hip
Appreciate oncology input, plan for biopsy by IR on Saturday 01/13
PSA normal
#Chronic hyponatremia
TSH and cortisol normal, suspect secondary to poor solute intake
Encourage solute intake, continue management as per nephrology
Fluid restrict, trend sodium
#History of hypertension
Blood pressure soft, hold lisinopril 20 mg daily
May continue amlodipine 10 mg daily
#GERD
#Vargas's esophagus
Continue PPI, Pepcid
#Hyperlipidemia
Continue statin
#Underweight
#Moderate protein calorie malnutrition
Continue protein supplements - brings them in
#History of prostate cancer status post radiation
DVT prophylaxis�subcu Lovenox
DNR confirmed with patient upon admission
Updated patient and 01/11
Total time spent to see the patient on the floor, examine the patient, review data and lab results, discuss treatment plan with patient, nursing staff around 55 minutes.
Physical Exam
General: No acute distress
HEENT: Normocephalic, Atraumatic, EOMI, MMM
Respiratory: Clear to Auscultation bilaterally
Cardiac: Normal S1/S2, Regular Rate and Rhythm
GI: Soft, Nontender, Nondistended, Normal Bowel Sounds, mildly palpable mass in right lower quadrant
Extremities: No Clubbing, Cyanosis, or Edema
Neuro: Nonfocal/Grossly Intact
Psych: Calm, Cooperative
Anticipated Discharge: 24 - 48 hours
Subjective/Interval History
-
Date of Service: January 14, 2024
No sob
No abd pain
Right hip discomfort
Objective Data
-
Labs:
Laboratory Results
01/14/24
07:39
WBC 3.0 L
Hgb 10.0 L
Hct 30.8 L
Plt Count 268
Sodium 129 L
Potassium 4.2
Chloride 96 L
Carbon Dioxide 24
BUN 13
Creatinine 0.8
Glucose 49 L*
Calcium 11.1 H
Vital Signs:
Vital Signs
Temp Pulse Resp BP Pulse Ox
97.8 F 74 16 123/66 94
01/14/24 07:06 01/14/24 07:06 01/14/24 07:06 01/14/24 07:06 01/14/24 07:06
I&O
01/13/24 01/14/24 01/15/24
06:59 06:59 06:59
Intake Total 1030 / 1030 2280 / 2280
Output Total 200 / 200 450 / 450
Balance 830 / 830 1830 / 1830
--- NOTE | 2024-01-14 12:04 | CM ---
Chart reviewed.
For inguinal groin biopsy today. Follow-up electrolytes tomorrow
PT/OT determining HH vs no needs at this time.
CM will cont to follow for d/c needs
Plan: Home; no needs vs home PT
[2024-01-14 12:14] LABS: Glucose - Point of Care 74 mg/dl (70-99)
--- NOTE | 2024-01-14 13:29 | PTCARENOTE ---
Patient with blood draw glucose of [address] Javed made aware and changed IVF to [id number]. Patient NPO for IR procedure.
[2024-01-14 14:11] VITALS: BP 117/63; BP_SYST 79
[2024-01-14 15:06] VITALS: BP 100/83
[2024-01-14 15:25] VITALS: BP 98/55; BP_SYST 71
[2024-01-14 15:27] VITALS: BP 117/60
--- NOTE | 2024-01-14 16:02 | PTCARENOTE ---
Returned from IR with bandaid intact to RLQ.
[2024-01-14] MEDS: LOVENOX 40 MG SC (17:06)
[2024-01-14] MEDS: PEPCID 20 MG PO (19:26)
[2024-01-14] MEDS: SODIUM CHLORIDE 1 GRAM PO (19:26)
[2024-01-14 20:18] LABS: 24 Hour Urine Total Volume Random mL; Urine Collection Length Random hr; Urine Free Lambda Light Chains 2.45 mg/L (0.00-3.79)
[2024-01-14] MEDS: TYLENOL 650 MG PO (22:08)
[2024-01-14 23:55] VITALS: BP 121/63
[2024-01-15] MEDS: TYLENOL 650 MG PO ×2 (06:08→17:24)
[2024-01-15 07:39] VITALS: BP 126/69
--- NOTE | 2024-01-15 08:31 | PN.CDI ---
CDI
- -
CDI:
Physician Documentation Request
Admit Date: 01/11/24 09:55
Dear Doctor Tello,
Please review the following and provide your response in the progress notes.
The purpose of this query is to ensure the accuracy of the conditions reported for your patient.
Clinical Indicators:
Manager Of Information, 01/11
#...admission pt with 14-23 lb weight loss (score 5).
#Pt appears to have lost 29 lbs (22.3% wt change, 6 months)-significant.
#...RD observed appearance of moderate fat/muscle loss at temples,
#...orbital, buccal, clavical, calves.
#Due to weight loss of >10% in 6 months and <75% estimated energy intake
#..for > 1 month, pt meeting criteria for severe protein/calorie malnutrition
#...(ASPEN/AND guidelines, chronic illness).
PN, 01/13
#Moderate protein calorie malnutrition
Based on the above and your clinical assessment, please provide additional specificity regarding the severity of the malnutrition:
Severe Protein Calorie Malnutrition of chronic illness
Other (please specify)
[place] Criteria ([employer] Hospitalist 2017)
2 or more criteria must be present for either
non severe or severe malnutrition
Note that the criteria differs related to the
presence of an acute or chronic illness
Chronic Illness
Energy Intake Non Severe: <75% for >1 month
Severe: <75% for >1 month
Weight Loss Non Severe: 5% over 1 month
7.5% over 3 months
10% over 6 months
20% over 1 year
Severe: >5% over 1 month
>7.5% over 3 months
>10% over 6 months
>20% over 1 year
Body Fat Non Severe: Mild Loss
Severe: Severe Loss
Muscle Mass Non Severe: Mild Loss
Severe: Severe Loss
Use of terms such as suspected, likely, concern for, or probable (associated with a specific diagnosis that is being evaluated, monitored, or treated as if it exists) are acceptable and can be coded in the inpatient setting, when documented at the
time of discharge.
Thank you,
Niya Knapp RN BSN CCDS
CDI Specialist
please contact via tiger text
Please use your independent medical judgment in providing your response.
[2024-01-15] MEDS: PRAVACHOL 20 MG PO (09:21)
[2024-01-15] MEDS: ROXICODONE 5 MG PO (09:21)
[2024-01-15] MEDS: FOLVITE 0.4 MG PO ×2 (09:21→19:37)
[2024-01-15] MEDS: NORVASC 10 MG PO (09:21)
[2024-01-15] MEDS: SODIUM CHLORIDE 1 GRAM PO ×2 (09:21→19:37)
[2024-01-15] MEDS: PROTONIX 40 MG PO (09:22)
[2024-01-15 09:39] LABS: Blood Urea Nitrogen 15 mg/dl (9-20); Calcium 10.7 mg/dl (8.4-10.2); Carbon Dioxide 19 mmol/L (22-30); Chloride 98 mmol/L (98-107); Estimated Creatinine Clearance 53 ml/min; Glucose 63 mg/dl (70-99); Sodium 128 mmol/L (135-145); eGFR > 60.00
--- NOTE | 2024-01-15 10:09 | W.PN.HOSP.TC ---
Addendum entered and electronically signed by Cosmo Javed MD 01/15/24 16:42:
Addendum
Pt was noticed to have right lower extremity swelling, concern for DVT. No pain issue, will order US.
d/w at bed side. Hold dc for now
Original Note:
Today's Communication/Plan
-
C/w fluid restriction, NaCl, f/w nephrology recommendations, appreciate help
c/w Tylenol, Add PRN Tramadol ( to give script upon dc)
Assessment / Plan
Assessment / Plan
HPI: 74-year-old male with a past medical history of hypertension, hyperlipidemia, GERD, osteoarthritis, and prostate cancer status post radiation was told by his PCP to come to the ER for abnormal lab values. Patient reports having a 2-3-week
history of weakness. He has lost 15 pounds. Reports early satiety and night sweats. No fever. No chest pain, no shortness of breath. No nausea, no vomiting. No black or bloody stools. No dysuria.
#Hypercalcemia of malignancy
Appreciate nephrology input, status post pamidronate 01/10
Continue IV fluids, follow-up on PTH related peptide
# hypomagnesemia
# Hypoglycemia
encourage oral intake
#Soft tissue mass of the right hip with pain and discomfort
c/w Tylenol
Add PRN Tramadol.
Appreciate oncology input, s/p Biopsy by IR on Saturday 01/13
Myeloma panel pending
PSA normal
#Chronic hyponatremia
TSH and cortisol normal, suspect secondary to poor solute intake
Encourage solute intake, continue management as per nephrology
Fluid restrict, trend sodium
#History of hypertension
Blood pressure soft, hold lisinopril 20 mg daily
May continue amlodipine 10 mg daily
#GERD
#Vargas's esophagus
Continue PPI, Pepcid
#Hyperlipidemia
Continue statin
#Underweight
#Severe protein/ calorie malnutrition
Continue protein supplements - brings them in
#History of prostate cancer status post radiation
DVT prophylaxis�subcu Lovenox
DNR confirmed with patient upon admission
Total time spent to see the patient on the floor, examine the patient, review data and lab results, discuss treatment plan with patient, nursing staff around 55 minutes.
Physical Exam
General: No acute distress
HEENT: Normocephalic, Atraumatic, EOMI, MMM
Respiratory: Clear to Auscultation bilaterally
Cardiac: Normal S1/S2, Regular Rate and Rhythm
GI: Soft, Nontender, Nondistended, Normal Bowel Sounds, mildly palpable mass in right lower quadrant
Extremities: No Clubbing, Cyanosis, or Edema
Neuro: Nonfocal/Grossly Intact
Psych: Calm, Cooperative
Anticipated Discharge: Within 24 hours
Subjective/Interval History
-
Date of Service: January 15, 2024
No chest pain
No sob
Right hip pain
Objective Data
-
Labs:
Laboratory Results
01/15/24
08:04
Sodium 128 L
Potassium 4.0
Chloride 98
Carbon Dioxide 19 L
BUN 15
Creatinine 0.8
Glucose 63 L
Calcium 10.7 H
Vital Signs:
Vital Signs
Temp Pulse Resp BP Pulse Ox
98.4 F 77 18 126/69 97
01/15/24 07:39 01/15/24 07:39 01/15/24 07:39 01/15/24 07:39 01/15/24 07:39
I&O
01/14/24 01/15/24 01/16/24
06:59 06:59 06:59
Intake Total 2280 / 2280 1320 / 1320
Output Total 450 / 450 50 / 50
Balance 1830 / 1830 1270 / 1270
[2024-01-15 10:14] LABS: Glucose - Point of Care 83 mg/dl (70-99)
--- NOTE | 2024-01-15 10:32 | W.PN.ONC ---
Today's Communication / Plan
-
Biopsy of soft tissue mass is needed for diagnosis, done in IR 01/13
Monitor calcium, trending down, status post pamidronate on January 10. No Vit D or calcium supplementation.
PSA is 0.13
Myeloma panel pending
d/c planning
Will arrange outpatient onc f/u in ~1 week to review path results
Will sign off, please call w/ any questions
Impression
Impression
Hypercalcemia, status post pamidronate January 11, 2024
Large soft tissue mass involving the right hip
History of prostate cancer, current PSA 0.13
Plan
Plan
Biopsy of soft tissue mass is needed for diagnosis, done in IR 01/13
Monitor calcium, trending down, status post pamidronate on January 10. No Vit D or calcium supplementation.
PSA is 0.13
Myeloma panel pending
d/c planning
Will arrange outpatient onc f/u in ~1 week to review path results
Will sign off, please call w/ any questions
Subjective/Objective
Subjective/Objective
no focal complaints, just feeling tired
s/p IR bx yesterday, went well
Vital Signs:
Vital Signs
Temp Pulse Resp BP Pulse Ox
98.4 F 77 18 126/69 97
01/15/24 07:39 01/15/24 07:39 01/15/24 07:39 01/15/24 07:39 01/15/24 07:39
Lab Results:
Laboratory Data
WBC 3.0 10^3/uL (4.8-10.8) L 01/14/24 07:39
Hgb 10.0 g/dL (13.0-18.0) L 01/14/24 07:39
Plt Count 268 10^3/uL (130-400) 01/14/24 07:39
eGFR > 60.00 01/15/24 08:04
Orders
Orders
Orders From Last 24 Hours
01/14/24 15:10
[facility] Pathology Routine
[2024-01-15 12:41] VITALS: BP 121/67; PULSE 76; O2SAT 95
--- NOTE | 2024-01-15 13:01 | PTCARENOTE ---
After walking with PT this am noted swelling to right foot/ankle +1. No complaints of pain. No reports of trauma to foot. Dr. leach made aware.
[2024-01-15 15:15] VITALS: BP 139/68
[2024-01-15] MEDS: LOVENOX 40 MG SC (16:58)
--- NOTE | 2024-01-15 18:52 | W.PN.NEPH.PH ---
Today's Communication / Plan
-
Samsca 7.5 mg p.o. x 1
Follow-up BMP
Maintain salt and fluid restriction
Assessment/Plan
-
IMP:
Hypercalcemia
Hyponatremia
Hypomagnesemia
mild MARISELA-baseline cr 0.7
Anemia
History of hypertension
Hyperlipidemia
Arthritis
History of hip replacement 2 months ago
Vargas's esophagus
Hiatal hernia
Left inguinal hernia
PLan:
A/w worsening hypercalcemia found in out pt labs : suspect due to malignancy
Calcium down to 10.7
PTH was suppressed appropriately, PTH RP, paraprotein w/u pending
CT shows large right pelvic mass, considering biopsy per Onc
Continue IV fluids with normal saline
calcium improving s/p pamidronate 60 mg on 01/10
Hyponatremia chronic, ADH mediated from malignancy, sodium down to 128, will give 7.5mg samsca tonight
TSH and cortisol were ok. Encourage solute intake
Fluid restriction of 48 ounces per day, lasix given 2 days prior
mild MATHEUS-resolved, Suspect prerenal, bland UA, urine PCR only 0.2gm/gm of cr
Blood pressure stable, hold ACEI
metabolic acidosis evolving with CO2 of 19
Replaced magnesium
holding Vit D and murray meds
Discussed with the patient
-
-
Date of Service: January 15, 2024
CC / HPI / ROS
-
Chief Complaint:
MARISELA, hypercalcemia
History of Present Illness:
murray better at 10.7 range, cr better 0.8
BP stable, no fever
sodium down to [address] noted pelvic mass s/p biopsy on 01/14/2024
Metabolic acidosis evolving with serum bicarbonate level of 19
Review of Systems:
no cp or sob
no n/v
Right lower extremity edema
Labs
-
Labs:
WBC 3.0 10^3/uL (4.8-10.8) L 01/14/24 07:39
RBC 3.75 10^6/uL (4.70-6.10) L 01/14/24 07:39
Hgb 10.0 g/dL (13.0-18.0) L 01/14/24 07:39
Hct 30.8 % (39.0-52.0) L 01/14/24 07:39
Plt Count 268 10^3/uL (130-400) 01/14/24 07:39
Sodium 128 mmol/L (135-145) L 01/15/24 08:04
Potassium 4.0 mmol/L (3.5-5.1) 01/15/24 08:04
Chloride 98 mmol/L (98-107) 01/15/24 08:04
Carbon Dioxide 19 mmol/L (22-30) L 01/15/24 08:04
BUN 15 mg/dl (9-20) 01/15/24 08:04
Creatinine 0.8 mg/dL (0.7-1.3) 01/15/24 08:04
eGFR > 60.00 01/15/24 08:04
Glucose 63 mg/dl (70-99) L 01/15/24 08:04
Calcium 10.7 mg/dl (8.4-10.2) H 01/15/24 08:04
Phosphorus 2.2 mg/dl (2.5-4.5) L 01/14/24 07:39
Albumin 3.4 g/dl (3.5-5.0) L 01/11/24 06:21
Physical Exam
-
Vital Signs:
Vital Signs
Temp Pulse Resp BP Pulse Ox
98.4 F 103 18 139/68 99
01/15/24 15:15 01/15/24 15:15 01/15/24 15:15 01/15/24 15:15 01/15/24 15:15
Cardiovascular:: Regular rate and rhythm
Respiratory:: Bilateral: CTA
Lung Excursion:: Normal
Abdomen:: Nontender and Soft
Bowel Sounds:: Normal
Extremity Edema:: +1: Right:
[place] Catheter: No
[2024-01-15] MEDS: PEPCID 20 MG PO (19:37)
[2024-01-15] MEDS: SAMSCA 7.5 MG PO (19:37)
[2024-01-15] MEDS: ULTRAM 50 MG PO (21:54)
[2024-01-15 23:45] VITALS: BP 127/71
[2024-01-16] MEDS: TYLENOL 650 MG PO ×2 (00:12→08:58)
[2024-01-16 01:31] LABS: IgA 142 mg/dL (68-408); IgG 594 mg/dL (768-1632); IgM 57 mg/dL (35-263)
[2024-01-16 03:51] LABS: Albumin 2.51 g/dL (3.75-5.01); Alpha 1 Globulin 0.44 g/dL (0.19-0.46); SPEP IFE Reflex IFE Done
[2024-01-16 07:02] VITALS: BP 111/61
[2024-01-16] MEDS: NORVASC 10 MG PO (08:32)
[2024-01-16] MEDS: PROTONIX 40 MG PO (08:33)
[2024-01-16] MEDS: PRAVACHOL 20 MG PO (08:33)
[2024-01-16] MEDS: FOLVITE 0.4 MG PO (08:33)
[2024-01-16] MEDS: SODIUM CHLORIDE 1 GRAM PO (08:33)
[2024-01-16 09:00] LABS: Hematocrit 29.8 % (39.0-52.0); Hemoglobin 10.4 g/dL (13.0-18.0); Mean Corp Hgb Conc. 34.9 g/dL (33.0-37.0); Mean Corpuscular Volume 80.3 fL (80.0-94.0); Mean Platelet Volume 8.7 fL (7.4-10.4); Platelet Count 291 10^3/uL (130-400); Red Blood Cell Count 3.71 10^6/uL (4.70-6.10); White Blood Cell Count 3.6 10^3/uL (4.8-10.8)
[2024-01-16 09:27] LABS: Blood Urea Nitrogen 18 mg/dl (9-20); Calcium 10.3 mg/dl (8.4-10.2); Carbon Dioxide 23 mmol/L (22-30); Chloride 95 mmol/L (98-107); Estimated Creatinine Clearance 47 ml/min; Glucose 71 mg/dl (70-99); Potassium 4.3 mmol/L (3.5-5.1); Sodium 127 mmol/L (135-145); eGFR > 60.00
--- NOTE | 2024-01-16 10:48 | W.PN.HOSP.TC ---
Today's Communication/Plan
-
DC
Assessment / Plan
Assessment / Plan
HPI: 74-year-old male with a past medical history of hypertension, hyperlipidemia, GERD, osteoarthritis, and prostate cancer status post radiation was told by his PCP to come to the ER for abnormal lab values. Patient reports having a 2-3-week
history of weakness. He has lost 15 pounds. Reports early satiety and night sweats. No fever. No chest pain, no shortness of breath. No nausea, no vomiting. No black or bloody stools. No dysuria.
#Hypercalcemia of malignancy
Appreciate nephrology input, status post pamidronate 01/10
Continue IV fluids, follow-up on PTH related peptide
# hypomagnesemia, replaced
dc on oral magnesium.
# Hypoglycemia, resolved
encourage oral intake
#Soft tissue mass of the right hip with pain and discomfort
c/w Tylenol
Add PRN Tramadol.
Appreciate oncology input, s/p Biopsy by IR on Saturday 01/13
Myeloma panel pending
PSA normal
#Chronic hyponatremia
TSH and cortisol normal, suspect secondary to poor solute intake
Encourage solute intake, continue management as per nephrology
Fluid restrict, oral sodium chloride, s/p Tolvaptan. BMP in few days in OP.
#History of hypertension
Blood pressure soft, held lisinopril 20 mg daily
May continue amlodipine 10 mg daily
#GERD
#Vargas's esophagus
Continue PPI, Pepcid
#Hyperlipidemia
Continue statin
#Underweight
#Severe protein/ calorie malnutrition
Continue protein supplements - brings them in
#History of prostate cancer status post radiation
DVT prophylaxis�subcu Lovenox
DNR confirmed with patient upon admission
Total discharge time spent to see the patient on the floor, examine the patient, review data and lab results, discuss discharge plan with patient, , nursing staff around 67 minutes.
Physical Exam
General: No acute distress
HEENT: Normocephalic, Atraumatic, EOMI, MMM
Respiratory: Clear to Auscultation bilaterally
Cardiac: Normal S1/S2, Regular Rate and Rhythm
GI: Soft, Nontender, Nondistended, Normal Bowel Sounds, mildly palpable mass in right lower quadrant
Extremities: No Clubbing, Cyanosis, or Edema
Neuro: Nonfocal/Grossly Intact
Psych: Calm, Cooperative
Anticipated Discharge: Today
Subjective/Interval History
-
Date of Service: January 16, 2024
he is feeling well
No chest pain or sob
No abd pain
Objective Data
-
Labs:
Laboratory Results
01/16/24
08:43
WBC 3.6 L
Hgb 10.4 L
Hct 29.8 L
Plt Count 291
Sodium 127 L
Potassium 4.3
Chloride 95 L
Carbon Dioxide 23
BUN 18
Creatinine 0.9
Glucose 71
Calcium 10.3 H
Vital Signs:
Vital Signs
Temp Pulse Resp BP Pulse Ox
98.9 F 82 20 111/61 97
01/16/24 07:02 01/16/24 07:02 01/16/24 07:02 01/16/24 07:02 01/16/24 07:02
I&O
01/15/24 01/16/24 01/17/24
06:59 06:59 06:59
Intake Total 1320 / 1320 900 / 900
Output Total 50 / 50 500 / 500
Balance 1270 / 1270 400 / 400
[2024-01-16] MEDS: SAMSCA 7.5 MG PO (11:14)
[2024-01-16 11:31] VITALS: BP 109/62
--- NOTE | 2024-01-16 12:00 | CM ---
Pt to d/c home today.
PT/OT rec home PT. Discussed w/ pt at bedside w/ . Agreeable to [facility], referral completed, liaison made aware
IMM reviewed, pt given copy. Copy placed in chart
Plan: Home w/ [facility]
--- NOTE | 2024-01-16 12:10 | VNURNOTE ---
Home Health Liaison spoke with patient to discuss [facility] nurse/therapy, visits, schedule and homebound status. Patient is agreeable and understands that visits at home will be 2-3 x per week to assess and teach medical management. He had [facility] in September
for a hip replacement. Patient is aware that [facility] will contact them for start of care in 1-2 days after discharge from .
[facility] referral completed in [facility].
--- NOTE | 2024-01-16 15:01 | W.DCSUMMARY ---
Discharge Summary
Discharge Data
Date of Admission: 01/11/24
Date of Discharge: 01/16/24
-
Pending Results: No
Hospital Course
74 years old male presented to the emergency room with abnormal blood work. Patient reported weakness and ambulatory dysfunction. His blood work showed hypercalcemia at 13.6, hyponatremia 129, creatinine 1.2. Patient was seen by direct service professional. He
received intravenous fluid. parathyroid hormone was suppressed appropriately. Parathyroid hormone related protein paraproteinemia were send out. Scan of the abdomen and pelvis showed a large right pelvic mass involving the right hip. Patient
had history of prostate cancer, PSA was 0.13. Patient was seen by oncologist. He was given pamidronate with good response. Calcium started to come down to around 10. Sodium improved with fluid restriction patient was given tolvaptan. Pain in
the right hip was controlled by Tylenol and low-dose tramadol. Patient was evaluated by physical therapy. Patient remained hemodynamically stable. He was advised to follow-up with oncology to discuss the result of biopsy of the right pelvic mass.
Patient had biopsy on 01/13 by IR. Patient was discharged home in a stable condition. He was given a prescription to do blood work.
Discharge Plan
-
Patient Disposition: Home with Home Care
Discharge Diagnosis/Procedures: Hyponatremia, repeat blood work in 5 days
Hypercalcemia
Large soft tissue mass involving the right hip
Diet: Regular and Restrict fluids to 64 oz
Blood Work: bmp in 3 days
Referrals:
Yoly Roth DO [Family Provider] - in one to two weeks
Kerry Holley MD [Active] - in three to four weeks
Prescriptions:
New
acetaminophen 500 mg capsule
1,000 mg PO Q6H PRN (Reason: mild to moderate pain) Qty: 20 0RF
magnesium oxide 500 mg capsule
500 mg PO BID Qty: 60 0RF
tramadol 50 mg tablet
50 mg PO BID PRN (Reason: severe pain) Qty: 20 0RF
Continued
folic acid 400 mcg Tablet
0.4 mg PO BID
famotidine 20 mg Tablet
20 mg PO HS
amlodipine 10 mg Tablet
10 mg PO DAILY
omeprazole 20 mg Capsule,Delayed Release(Dr/Ec)
20 mg PO DAILY
benazepril 20 mg Tablet
20 mg PO DAILY
pravastatin 20 mg Tablet
20 mg PO DAILY
cholecalciferol (vitamin D3) [Vitamin D3] 50 mcg (2,000 unit) Tablet
50 mcg PO DAILY
Discontinued
celecoxib 200 mg Capsule
200 mg PO BID
Discharge Orders:
Discharge Patient (As Directed); Ordered 01/16/24
Ordered By: Cosmo Javed
Discharge Date and Time
Discharge Date/Time: 01/16/24 11:54
Print Language: SWISS
== END 2024-01-16 11:54 | disposition home health service (06) | DRG 640 ==
LOC: 4 EAST ACU 09:55
PROVIDERS: Radiology Vascular & Interventional Radiology; Specialist; ADMITTING PHYSICIAN Family Medicine; ATTENDING PHYSICIAN Internal Medicine; CONSULT PHYSICIAN Internal Medicine; EMERGENCY PHYSICIAN Emergency Medicine; FAMILY PHYSICIAN Family Medicine; OTHER PHYSICIAN Internal Medicine Hematology & Oncology
PROC: 0WBH3ZX Excision of Retroperitoneum, Percutaneous Approach, Diagnostic (ICD-10-PCS; 2024-01-14)
DX: E83.52 Hypercalcemia (principal); E43 Unspecified severe protein-calorie malnutrition; E87.1 Hypo-osmolality and hyponatremia; Z68.1 Body mass index [BMI] 19.9 or less, adult; N17.9 Acute kidney failure, unspecified; E87.20 Acidosis, unspecified; Z87.891 Personal history of nicotine dependence; K21.9 Gastro-esophageal reflux disease without esophagitis; E78.00 Pure hypercholesterolemia, unspecified; Z66 Do not resuscitate; M81.0 Age-related osteoporosis without current pathological fracture
CPT/HCPCS: 88305; 20206; 71260; 74177; 76942; 80048; 80053; 81003; 82330; 82533; 82570; 82784; 82962; 83519; 83521; 83735; 83935; 83970; 84100; 84153; 84155; 84156; 84165; 84300; 84443; 85025; 85027; 86334; 86335; 88333; 88341; 88342; 88365; 93971; 96361; 96365; 96366; 97116; 97162; 97530; 99152; 99153; 99284; J2430; Q9967

== ENCOUNTER → 2024-01-28 15:54 | Outpatient (REF) | payer MEDICARE, SELFPAY ==
[2024-01-28 15:56] LABS: AST (SGOT) 78 U/L (17-59); Albumin 3.2 g/dl (3.5-5.0); Alkaline Phosphatase 156 U/L (38-126); Blood Urea Nitrogen 24 mg/dl (9-20); Carbon Dioxide 22 mmol/L (22-30); Chloride 89 mmol/L (98-107); Glucose 43 mg/dl (70-99); Potassium 5.1 mmol/L (3.5-5.1); Sodium 125 mmol/L (135-145); Total Bilirubin 0.9 mg/dl (0.2-1.3); Total Protein 5.6 g/dl (6.3-8.2); eGFR > 60.00
[2024-01-28 16:03] LABS: ALT (SGPT) < 30 U/L (0-50)
== END ==
LOC: OIDL 15:54
PROVIDERS: ATTENDING PHYSICIAN Internal Medicine Hematology & Oncology
DX: E83.52 Hypercalcemia (principal); C83.398 Diffuse large B-cell lymphoma of other extranodal and solid organ sites
CPT/HCPCS: 80053

== ENCOUNTER → 2024-01-31 14:38 | Outpatient (REF) | payer MEDICARE, SELFPAY ==
[2024-01-31 10:52] LABS: Blood Urea Nitrogen 38 mg/dl (9-20); Calcium 12.4 mg/dl (8.4-10.2); Carbon Dioxide 17 mmol/L (22-30); Chloride 90 mmol/L (98-107); Glucose 68 mg/dl (70-99); Potassium 5.2 mmol/L (3.5-5.1); Sodium 127 mmol/L (135-145); eGFR 48.55
== END ==
LOC: OIDL 14:38
PROVIDERS: ATTENDING PHYSICIAN Internal Medicine Hematology & Oncology
DX: E83.52 Hypercalcemia (principal)
CPT/HCPCS: 80048

== ENCOUNTER 2024-02-01 08:11 | Emergency (ER) | payer MEDICARE, SELFPAY ==
[2024-02-01] VITALS (13 sets, daily range): BP systolic 74–107; BP diastolic 46–64
--- NOTE | 2024-02-01 09:04 | ED.GENMED ---
History of Present Illness
<Ludwig Carrillo PA-C - Last Filed: 02/04/24 07:04>
General
Chief Complaint: Change in Mental Status
Source: patient
Exam Limitations: none
Time Seen by Provider: 02/01/24 08:46
History of Present Illness
History of Present Illness:
74-year-old male presents from home with generalized weakness and confusion. The states over the past week he has been declining. He was here at the beginning of this month was found to have a pelvic mass that was biopsied. This turned out
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 He was due to see oncology at [facility] today however he was too weak and confused to get there. He has been following with hematology oncology here for low sodium and high calcium. He received an infusion of both of these
yesterday. He complains mainly of tailbone pain. There is a slight cough. No reported fever. No other complaints at this time.
Past History
<Ludwig Carrillo PA-C - Last Filed: 02/04/24 07:04>
Past History
ED Past Medical History: Cancer (prostate, s/p xrt), GERD, HTN and Hypercholesterolemia
Social History
Tobacco: Non-smoker
Personal:
Living: with family
Phy Exam
<Ludwig Carrillo PA-C - Last Filed: 02/04/24 07:04>
Physical Exam
Physical Exam:
General: Cachectic male somnolent no acute respiratory distress
HEENT: Normocephalic mucosa dry pupils equal round reactive to light
Heart: Regular rate and rhythm lungs: Clear no wheeze
Abdomen soft nontender nondistended no guarding or rebound
Extremities: No cyanosis but edema noted to bilateral lower extremities
Skin warm. Examination of the coccyx area provide dorsalis no evidence of obvious skin breakdown
Neurologic exam: Alert responsive verbal stimuli following commands face is symmetric no dysarthria or aphasia oriented to person and place
Course
<Ludwig Carrillo PA-C - Last Filed: 02/04/24 07:04>
Orders/Labs/Results
Orders:
Orders
02/01/24 09:03
CT Head W/o Iv Contrast Urgent
Comment:
Reason For Exam: confusion
0.9% Sodium Chloride 1000 ml [Nss] 1,000 ml IV BOLUS
CR Chest Portable - 1 View Urgent
Comment:
Reason For Exam: weakness, cough
Reason Study Needs to be Portable: Unable to Transport
02/01/24 09:14
CMP [Comprehensive Metabolic Panel] Urgent
COVID-19 Antigen Urgent
Source: Nasal Swab
Complete Blood Count/With Diff Urgent
Influenza A+B Rapid Molecular Urgent
DREW Source: Nasal Swab
Specimen Description:
02/01/24 11:12
CT Chest/abd/pel W Iv Cont Urgent
Comment:
Reason For Exam: pain, history of CA
02/01/24 12:34
Lactic Acid Q4H
Comment: CANCEL 2nd LACTIC ACID IF 1st LACTIC ACID IS LESS THAN 2
Urinalysis Reflex To Culture Urgent
Date Specimen was Collected: 02/01/24
Time Specimen was Collected: 11:55
Urine Microscopic Reflex Cult Urgent
02/01/24 13:00
0.9% Sodium Chloride 1000 ml [Nss] 1,000 ml IV BOLUS
02/01/24 13:35
Piperacillin/Tazo 3.375 Gram [Zosyn] 3.375 gram in 50 ml IV NOW
02/01/24 15:06
Vancomycin [Vancocin] 1,500 mg 0.9% Sodium Chloride 500 ml [Nss] 500 ml IV NOW
02/01/24 17:13
Lactic Acid Q4H
Comment: CANCEL 2nd LACTIC ACID IF 1st LACTIC ACID IS LESS THAN 2
Abnormal Lab Results
12/02/01/24 02/01/24
09:14 12:34 17:13
RBC 3.75 L 10^6/uL
(4.70-6.10)
Hgb 10.1 L g/dL
(13.0-18.0)
Hct 29.9 L %
(39.0-52.0)
MCV 79.7 L fL
(80.0-94.0)
MCH 26.9 L pg
(27.0-31.0)
Abs Immat Gran (auto) 0.2 H 10^3/uL
(0-0.05)
Absolute Lymphs (auto) 0.6 L 10^3/uL
(1.2-3.4)
Immature Gran % 3.5 H %
(0-0.5)
Lymphocytes % 9.6 L %
(20.5-51.1)
Sodium 127 L mmol/L
(135-145)
Chloride 93 L mmol/L
(98-107)
Carbon Dioxide 17 L mmol/L
(22-30)
BUN 42 H mg/dl
(9-20)
Creatinine 1.6 H mg/dL
(0.7-1.3)
Lactic Acid 6.9 H* mmol/L 6.5 H* mmol/L
(0.7-2.0) (0.7-2.0)
Calcium 11.9 H mg/dl
(8.4-10.2)
AST 82 H U/L
(17-59)
Alkaline Phosphatase 162 H U/L
(38-126)
Total Protein 5.2 L g/dl
(6.3-8.2)
Albumin 3.0 L g/dl
(3.5-5.0)
Urine Ketones Trace A
(Negative)
Ur Occult Blood Reflex Trace A
(Negative)
Urine RBC 7-10 A /HPF
(0-2)
Urine Bacteria (Reflex) Few A
(Negative)
02/01/24 09:14
02/01/24 09:14
Vital Signs
Initial and Last Documented VS:
Initial Vital Signs
Temp BP Pulse Ox
97.4 F 83/46 100
02/01/24 08:23 02/01/24 08:23 02/01/24 08:23
Last Documented Vital Signs
Temp Pulse Resp BP Pulse Ox
97.4 F 93 20 100/58 94
02/01/24 08:24 02/01/24 19:15 02/01/24 08:24 02/01/24 19:00 02/01/24 18:00
<Min Bullock MD - Last Filed: 02/01/24 10:31>
Orders/Labs/Results
Orders:
Orders
02/01/24 09:03
CT Head W/o Iv Contrast Urgent
Comment:
Reason For Exam: confusion
0.9% Sodium Chloride 1000 ml [Nss] 1,000 ml IV BOLUS
CR Chest Portable - 1 View Urgent
Comment:
Reason For Exam: weakness, cough
Reason Study Needs to be Portable: Unable to Transport
02/01/24 09:14
CMP [Comprehensive Metabolic Panel] Urgent
COVID-19 Antigen Urgent
Source: Nasal Swab
Complete Blood Count/With Diff Urgent
Influenza A+B Rapid Molecular Urgent
DREW Source: Nasal Swab
Specimen Description:
02/01/24 11:12
CT Chest/abd/pel W Iv Cont Urgent
Comment:
Reason For Exam: pain, history of CA
02/01/24 12:34
Lactic Acid Q4H
Comment: CANCEL 2nd LACTIC ACID IF 1st LACTIC ACID IS LESS THAN 2
Urinalysis Reflex To Culture Urgent
Date Specimen was Collected: 12/27/24
Time Specimen was Collected: 11:55
Urine Microscopic Reflex Cult Urgent
02/01/24 13:00
0.9% Sodium Chloride 1000 ml [Nss] 1,000 ml IV BOLUS
02/01/24 13:35
Piperacillin/Tazo 3.375 Gram [Zosyn] 3.375 gram in 50 ml IV NOW
02/01/24 15:06
Vancomycin [Vancocin] 1,500 mg 0.9% Sodium Chloride 500 ml [Nss] 500 ml IV NOW
02/01/24 17:13
Lactic Acid Q4H
Comment: CANCEL 2nd LACTIC ACID IF 1st LACTIC ACID IS LESS THAN 2
Abnormal Lab Results
02/01/24 02/01/24 02/01/24
09:14 12:34 17:13
RBC 3.75 L 10^6/uL
(4.70-6.10)
Hgb 10.1 L g/dL
(13.0-18.0)
Hct 29.9 L %
(39.0-52.0)
MCV 79.7 L fL
(80.0-94.0)
MCH 26.9 L pg
(27.0-31.0)
Abs Immat Gran (auto) 0.2 H 10^3/uL
(0-0.05)
Absolute Lymphs (auto) 0.6 L 10^3/uL
(1.2-3.4)
Immature Gran % 3.5 H %
(0-0.5)
Lymphocytes % 9.6 L %
(20.5-51.1)
Sodium 127 L mmol/L
(135-145)
Chloride 93 L mmol/L
(98-107)
Carbon Dioxide 17 L mmol/L
(22-30)
BUN 42 H mg/dl
(9-20)
Creatinine 1.6 H mg/dL
(0.7-1.3)
Lactic Acid 6.9 H* mmol/L 6.5 H* mmol/L
(0.7-2.0) (0.7-2.0)
Calcium 11.9 H mg/dl
(8.4-10.2)
AST 82 H U/L
(17-59)
Alkaline Phosphatase 162 H U/L
(38-126)
Total Protein 5.2 L g/dl
(6.3-8.2)
Albumin 3.0 L g/dl
(3.5-5.0)
Urine Ketones Trace A
(Negative)
Ur Occult Blood Reflex Trace A
(Negative)
Urine RBC 7-10 A /HPF
(0-2)
Urine Bacteria (Reflex) Few A
(Negative)
02/01/24 09:14
02/01/24 09:14
Vital Signs
Initial and Last Documented VS:
Initial Vital Signs
Temp BP Pulse Ox
97.4 F 83/46 100
02/01/24 08:23 02/01/24 08:23 02/01/24 08:23
Last Documented Vital Signs
Temp Pulse Resp BP Pulse Ox
97.4 F 93 20 100/58 94
02/01/24 08:24 02/01/24 19:15 02/01/24 08:24 02/01/24 19:00 02/01/24 18:00
<Ludwig Carrillo PA-C - Last Filed: 02/04/24 07:04>
MDM/Problems Addressed
Differential Diagnosis Includes:
Patient with weakness and confusion getting worse over the past week. Noted to be hypotensive at triage. Recent hospital admission demonstrated hyponatremia and hypercalcemia. Will recheck labs today. Will start fluids to help with hypotension.
COVID flu urinalysis chest x-ray ordered. CT head ordered
<Ludwig Carrillo PA-C - Last Filed: 02/04/24 07:04>
*Critical Care Note
Total Time (30-74mins, 75-104mins- exclusive of procedures): Not Applicable
<Ludwig Carrillo PA-C - Last Filed: 02/04/24 07:04>
Update Note
Update Note:
Pictures were sent to the patient. Discussed multiple times with oncology at [facility]. They request CT of the chest abdomen and pelvis. This was reviewed by our radiologist and interventional radiologist. Initially read as a
potential hematoma however interventional radiology believes this is more of a mass. Patient is on a second liter of fluid blood pressures running 90s over 60s. Lactic is elevated. [facility] wants him down there soon as possible
for chemotherapy initiation.
ED Attending Note
<Ludwig Carrillo PA-C - Last Filed: 02/04/24 07:04>
-
Portions of this chart may have been created with voice recognition software.� Occasional wrong word or��sound alike� substitutions may have occurred due to the inherent limitations of voice recognition software.
<Min Bullock MD - Last Filed: 02/01/24 10:31>
ED Attending Note
Patient seen and examined by attending physician: Yes
I performed the substantive portion of visit, reviewed & personally made and approve the management plan that is documented in note by myself or BAYLEE.: Yes
ED Attending Note:
74-year-old male severe weakness some lethargy some mental status change. Progressive over days. History of lymphoma. No treatment yet. Received treatment for high calcium and low sodium yesterday.
Generally very weak appearing emaciated thin. Mild hypotension. Lethargic but will awaken and talk.
Lungs clear and equal. Heart regular rate and rhythm. Abdomen soft and nontender. Mild edema to both lower extremities right greater than left. Pitting in nature. Grossly nonfocal. Neck is supple.
Cachexia with severe weakness hyponatremia dehydration. Workup in progress. Warrants inpatient management
Discharge Plan
Departure
Patient Disposition: Acute Care Hospital
Date of Disposition: 02/01/24
Time of Disposition: 13:28
Patient with high blood pressure during this ER visit?: No
Discharge Problem:
Acute confusion, Lymphoma
Prescriptions:
No Action
folic acid 400 mcg Tablet
0.4 mg PO BID
famotidine 20 mg Tablet
20 mg PO HS
amlodipine 10 mg Tablet
10 mg PO DAILY
omeprazole 20 mg Capsule,Delayed Release(Dr/Ec)
20 mg PO DAILY
benazepril 20 mg Tablet
20 mg PO DAILY
pravastatin 20 mg Tablet
20 mg PO DAILY
cholecalciferol (vitamin D3) [Vitamin D3] 50 mcg (2,000 unit) Tablet
50 mcg PO DAILY
tramadol 50 mg tablet
50 mg PO BIDPRN PRN (Reason: severe pain)
acetaminophen 500 mg capsule
1,000 mg PO Q6HPRN PRN (Reason: mild to moderate pain)
Referrals:
Yoly Roth DO [Family Provider] -
Hospital Transfer
Other hospital: [facility]
I certify that the patient requires transfer: Yes
Discussed case with accepting physician: Dr. Mariscal
Reason for transfer: higher level of care and specialties available
Interventions
Interventions:
*Risk Screen - Suicide Last Done: 02/01/24 08:26
*General Assessment Last Done: 02/01/24 08:26
*Neglect/Abuse Screening Last Done: 02/01/24 09:27
ED- Fall Risk Assessment Last Done: 02/01/24 09:27
*ED COVID-19 Vaccine History Last Done: 02/01/24 08:24
*Nursing Disposition Last Done: 02/01/24 19:28
ED- Pulmonary Assessment Last Done: 02/01/24 09:27
ED-Psychological Assessment Last Done: 02/01/24 19:28
ED- Neurological Assessment Last Done: 02/01/24 09:27
ED- Cardiac Assessment Last Done: 02/01/24 09:27
ED Swallowing Screen Last Done: 02/01/24 14:04
Discharge Date and Time
Discharge Date/Time: 02/01/24 19:31
Print Language: NIGERIEN
[2024-02-01] MEDS: NSS 1000 IV ×2 (09:20→14:21)
[2024-02-01 09:32] LABS: % Basophils 0.8 % (0-2); % Eosinophils 2.8 % (0-6); % Immature Granulocytes 3.5 % (0-0.5); % Lymphocytes 9.6 % (20.5-51.1); % Monocytes 8.9 % (1.7-9.3); % Neutrophils 74.4 % (42.2-75.2); Absolute Basophils 0.1 10^3/uL (0-0.2); Absolute Eosinophils 0.2 10^3/uL (0-0.7); Absolute Immature Granulocytes 0.2 10^3/uL (0-0.05); Absolute Lymphocytes 0.6 10^3/uL (1.2-3.4); Absolute Monocytes 0.5 10^3/uL (0.1-0.6); Absolute Neutrophils 4.5 10^3/uL (1.4-6.5); Hematocrit 29.9 % (39.0-52.0); Hemoglobin 10.1 g/dL (13.0-18.0); Mean Corp Hgb Conc. 33.8 g/dL (33.0-37.0); Mean Corpuscular Hgb 26.9 pg (27.0-31.0); Mean Corpuscular Volume 79.7 fL (80.0-94.0); Nucleated Red Blood Cells % 0.8 % (-); Platelet Count 271 10^3/uL (130-400); Red Blood Cell Count 3.75 10^6/uL (4.70-6.10); Red Cell Dist. Width 14.5 % (11.5-14.5); White Blood Cell Count 6.1 10^3/uL (4.8-10.8)
[2024-02-01 09:55] LABS: AST (SGOT) 82 U/L (17-59); Alkaline Phosphatase 162 U/L (38-126); Blood Urea Nitrogen 42 mg/dl (9-20); Calcium 11.9 mg/dl (8.4-10.2); Carbon Dioxide 17 mmol/L (22-30); Chloride 93 mmol/L (98-107); Glucose 79 mg/dl (70-99); Potassium 4.8 mmol/L (3.5-5.1); Sodium 127 mmol/L (135-145); Total Protein 5.2 g/dl (6.3-8.2); eGFR 44.93
[2024-02-01 10:17] LABS: COVID-19 Antigen Negative (Negative)
[2024-02-01 10:59] LABS: ALT (SGPT) 31 U/L (0-50)
[2024-02-01 12:54] LABS: Urine Albumin Trace (Neg - Trace); Urine Bilirubin Negative (Negative); Urine Character Clear (Clear); Urine Color Yellow; Urine Glucose Negative (Negative); Urine Ketone Trace (Negative); Urine Leukocyte Negative (Negative); Urine Nitrite Negative (Negative); Urine Occult Blood Trace (Negative); Urine Urobilinogen Negative (Neg - 1+)
[2024-02-01 13:24] LABS: Lactic Acid 6.9 mmol/L (0.7-2.0)
[2024-02-01 13:53] LABS: Urine Bacteria Few (Negative); Urine White Cell 0-2 /HPF (0-5)
[2024-02-01] MEDS: ZOSYN 50 IV (14:22)
[2024-02-01] MEDS: VANCOCIN 530 MG IV (15:38)
[2024-02-01 17:50] LABS: Lactic Acid 6.5 mmol/L (0.7-2.0)
== END 2024-02-01 19:31 | disposition short-term general hospital (02) ==
LOC: EMR 08:11
PROVIDERS: Emergency Medicine; Physician Assistant; EMERGENCY PHYSICIAN Emergency Medicine; FAMILY PHYSICIAN Family Medicine
DX: R41.0 Disorientation, unspecified (principal); C85.90 Non-Hodgkin lymphoma, unspecified, unspecified site; Z11.52 Encounter for screening for COVID-19
CPT/HCPCS: 99285; 96365; 96361; 96367; 70450; 71045; 71260; 74177; 80053; 81003; 81015; 83605; 85025; 87502; 87811; Q9967

== ENCOUNTER 2024-02-07 07:16 | Inpatient (IN) | payer MEDICARE, SELFPAY ==
[2024-02-06] VITALS (7 sets, daily range): BP systolic 78–97; BP diastolic 48–55; BMI 23.4; BMI 24.2
--- NOTE | 2024-02-06 09:29 | ED.GENMED ---
History of Present Illness
<TATIANA Mckee - Last Filed: 02/06/24 13:09>
General
Chief Complaint: Dehydration Symptoms
Source: patient and spouse
Exam Limitations: none
Time Seen by Provider: 02/06/24 09:07
Nursing documentation reviewed up to this point in time: agreed with
History of Present Illness
History of Present Illness:
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 Patient had his first chemo treatment (RCHOP chemo ) At [facility] 4 d ago.
reports patient was kept overnight and was discharged Sunday however since having infusion patient has gradually declined is confused and weak. She reports he is drinking fluids but very weak.
Patient arrives lethargic sleeping however will answer questions when asked.
reports patient oncologist is Dr. Alice Tsai [phone].
Past History
<TATIANA Mckee - Last Filed: 02/06/24 13:09>
Past History
ED Past Medical History: Cancer (prostate, s/p xrt), GERD, HTN and Hypercholesterolemia
Social History
Tobacco: Non-smoker
Personal:
Living: with family
Review of Systems
<TATIANA Mckee - Last Filed: 02/06/24 13:09>
Review of Systems
Allergies reviewed?: Yes
Other source history: family
All Other Systems: ROS reviewed and negative except as documented in HPI and ROS
Constitutional: Reports fatigue
EENT: Reports no symptoms
Respiratory: Reports no symptoms
Cardiac: Reports no symptoms
ABD/GI: Reports no symptoms
Musculoskeletal: Reports no symptoms
Skin: Reports no symptoms
Neurological: Reports no symptoms
Psychiatric: Reports no symptoms
Phy Exam
<TATIANA Mckee - Last Filed: 02/06/24 13:09>
General Physical Exam
General Presentation: no apparent distress
General age: appears older than age
General Skin: warm, dry and pale
General Habitus: elderly
General Mental: other (Very lethargic)
General Hydration: dry mucous membranes
Cardiovascular Exam
Cardiovascular Exam: regular rate/rhythm, no murmur and normal peripheral pulses
Pulmonary Exam
Pulmonary Exam: lungs clear and no respiratory distress
Neurological Exam
Neurological Exam: alert
Musculoskeletal Exam
Musculoskeletal Exam: other (Swelling to bilateral legs pitting, right arm with PICC line in place also swollen left arm mildly swollen as well strong distal pulses bilaterally upper and lower extremities)
Skin Exam
Skin Exam: normal color and warm/dry
Psychiatric Exam
Psychiatric Exam: normal mood/affect
Course
<TATIANA Mckee - Last Filed: 02/06/24 13:09>
Orders/Labs/Results
Orders:
Orders
02/06/24 08:45
ECG [Electrocardiogram (*1)] Urgent
Reason for Study: Fatigue / Weakness
02/06/24 08:46
EKG- Treatment ONCE
02/06/24 09:06
Complete Blood Count/With Diff Urgent
Comprehensive Metabolic Panel Urgent
Magnesium Urgent
Comment: ADD
Manual Differential Urgent
Troponin I Urgent
02/06/24 09:44
Venous Doppler Upr Ext Right [US Periph Venous UPPER Ext RT] Urgent
Comment:
Reason For Exam: swelling
02/06/24 09:46
Add On- LAB Urgent
Tests Added?: magnesium
Lactic Acid Urgent
02/06/24 09:47
0.9% Sodium Chloride 1000 ml [Nss] 1,000 ml IV BOLUS
02/06/24 10:06
Calcium Gluconate 1,000 mg IV NOW STA
Dextrose 50%-Water [Dextrose 50% Syringe] 25 grams IV NOW STA
Insulin Human Regular [Novolin R] 5 units IV NOW STA
02/06/24 10:10
Bedside Glucose PRE IV Insulin- HyperK+ NOW
02/06/24 10:30
Sterile Water For Inj [Sterile Water For Injection 1000 ml] 1,000 ml Sodium Bicarbonate 150 meq IV 150 mls/hr
02/06/24 10:42
NORepinephrine 4 MG/250 ML [Levophed] 4 mg in 250 ml IV NOW
Initial dose in mcg/min, then titrate:: 5
Titrate to keep:: MAP > 65 mmHg
Titrate by mcg/min:: 1-2 mcg/min
Frequency of titrations (minutes):: 5
Maximum dose in ICU in mcg/min:: 30
Maximum dose in IMU in mcg/min:: 8
Maximum dose in IVU in mcg/min:: 4
Begin to taper infusion when:: Remained at goal for 4hrs
Taper by mcg/min:: 1-2 mcg/min
Frequency of taper (minutes) if patient maintains goal:: 30
Taper to off?: Yes
If infusion off & no longer maintaining goal:: Contact Provider
02/06/24 11:40
Bedside Glucose POST IV Insulin- HyperK+ Q1HX2,Q2HX2
02/06/24 12:40
Potassium Urgent
Comment: draw 2 hours after regular insulin IV administration
02/06/24 12:54
Admit/Transfer Patient As Directed
Co-Sign Provider:
Level of Care: Observation services
Assign to:: Medical/Surgical
Physician / Group: edward
Diagnosis: tumor lysis syndrome
Code Status As Directed
Resuscitation Status: Do not resuscitate
Reached after discussion with pt or family/Healthcare POA: Yes
DNR Bracelet Application ONCE
PRN Pain Medication Management As Directed
May give lesser potent ordered pain med per pt: Yes
preference::
Protocol:: Medication orders for pain may be administered in a
manner that supports deferring to patient preference
when the pt is:
- Requesting an ordered lesser potent pain medication.
Least to most potent pain medications are defined
as: acetaminophen < NSAID < tramadol < opioids
(morphine, oxycodone, hydromorphone).
- Requesting a lesser dose of the same medication IF
ORDERED.
- Requesting a less intrusive route of administration
if both routes are prescribed by the provider (PO <
IV).
Abnormal Lab Results
02/06/24 02/06/24
09:06 10:37
WBC 11.3 H 10^3/uL
(4.8-10.8)
RBC 3.00 L 10^6/uL
(4.70-6.10)
Hgb 8.0 L D g/dL
(13.0-18.0)
Hct 23.1 L %
(39.0-52.0)
MCV 77.0 L fL
(80.0-94.0)
MCH 26.7 L pg
(27.0-31.0)
Plt Count 66 L D 10^3/uL
(130-400)
Abs Neuts (Manual) 11.1 H 10^3/uL
(1.4-6.5)
Segmented Neutrophils 95 H %
(42-75)
Band Neutrophils 4 H %
(0-3)
Lymphocytes (Manual) 0 L %
(20-51)
Monocytes (Manual) 1 L %
(2-9)
Sodium 124 L mmol/L
(135-145)
Potassium 6.7 H* mmol/L
(3.5-5.1)
Carbon Dioxide 15 L mmol/L
(22-30)
BUN 103 H* mg/dl
(9-20)
Creatinine 2.6 H mg/dL
(0.7-1.3)
Glucose 181 H mg/dl
(70-99)
Calcium 5.0 L* mg/dl
(8.4-10.2)
Magnesium 2.5 H mg/dl
(1.6-2.3)
Total Protein 4.4 L g/dl
(6.3-8.2)
Albumin 2.5 L g/dl
(3.5-5.0)
POC Glucose 180 H mg/dl
(70-99)
02/06/24 09:06
Vital Signs
Initial and Last Documented VS:
Initial Vital Signs
Temp Pulse Resp BP Pulse Ox
36.3 C 82 18 91/53 97
02/06/24 09:09 02/06/24 09:09 02/06/24 09:09 02/06/24 09:09 02/06/24 09:09
Last Documented Vital Signs
Temp Pulse Resp BP Pulse Ox
36.3 C 80 20 88/55 97
02/06/24 09:09 02/06/24 10:34 02/06/24 10:34 02/06/24 10:34 02/06/24 09:09
Manager Quantitative consulted with Physician
Manager Quantitative consulted with physician?: Yes
Name of Physician Consulted: Kieran
<Colby Sheikh, DO - Last Filed: 02/06/24 14:11>
Orders/Labs/Results
Orders:
Orders
02/06/24 08:45
ECG [Electrocardiogram (*1)] Urgent
Reason for Study: Fatigue / Weakness
02/06/24 08:46
EKG- Treatment ONCE
02/06/24 09:06
Complete Blood Count/With Diff Urgent
Comprehensive Metabolic Panel Urgent
Magnesium Urgent
Comment: ADD
Manual Differential Urgent
Troponin I Urgent
02/06/24 09:44
Venous Doppler Upr Ext Right [US Periph Venous UPPER Ext RT] Urgent
Comment:
Reason For Exam: swelling
02/06/24 09:46
Add On- LAB Urgent
Tests Added?: magnesium
Lactic Acid Urgent
02/06/24 09:47
0.9% Sodium Chloride 1000 ml [Nss] 1,000 ml IV BOLUS
02/06/24 10:06
Calcium Gluconate 1,000 mg IV NOW STA
Dextrose 50%-Water [Dextrose 50% Syringe] 25 grams IV NOW STA
Insulin Human Regular [Novolin R] 5 units IV NOW STA
02/06/24 10:10
Bedside Glucose PRE IV Insulin- HyperK+ NOW
02/06/24 10:30
Sterile Water For Inj [Sterile Water For Injection 1000 ml] 1,000 ml Sodium Bicarbonate 150 meq IV 150 mls/hr
02/06/24 10:42
NORepinephrine 4 MG/250 ML [Levophed] 4 mg in 250 ml IV NOW
Initial dose in mcg/min, then titrate:: 5
Titrate to keep:: MAP > 65 mmHg
Titrate by mcg/min:: 1-2 mcg/min
Frequency of titrations (minutes):: 5
Maximum dose in ICU in mcg/min:: 30
Maximum dose in IMU in mcg/min:: 8
Maximum dose in IVU in mcg/min:: 4
Begin to taper infusion when:: Remained at goal for 4hrs
Taper by mcg/min:: 1-2 mcg/min
Frequency of taper (minutes) if patient maintains goal:: 30
Taper to off?: Yes
If infusion off & no longer maintaining goal:: Contact Provider
02/06/24 11:40
Bedside Glucose POST IV Insulin- HyperK+ Q1HX2,Q2HX2
02/06/24 12:40
Potassium Urgent
Comment: draw 2 hours after regular insulin IV administration
02/06/24 12:54
Admit/Transfer Patient As Directed
Co-Sign Provider:
Level of Care: Observation services
Assign to:: Medical/Surgical
Physician / Group: edward
Diagnosis: tumor lysis syndrome
Code Status As Directed
Resuscitation Status: Do not resuscitate
Reached after discussion with pt or family/Healthcare POA: Yes
DNR Bracelet Application ONCE
PRN Pain Medication Management As Directed
May give lesser potent ordered pain med per pt: Yes
preference::
Protocol:: Medication orders for pain may be administered in a
manner that supports deferring to patient preference
when the pt is:
- Requesting an ordered lesser potent pain medication.
Least to most potent pain medications are defined
as: acetaminophen < NSAID < tramadol < opioids
(morphine, oxycodone, hydromorphone).
- Requesting a lesser dose of the same medication IF
ORDERED.
- Requesting a less intrusive route of administration
if both routes are prescribed by the provider (PO <
IV).
Abnormal Lab Results
02/06/24 02/06/24
09:06 10:37
WBC 11.3 H 10^3/uL
(4.8-10.8)
RBC 3.00 L 10^6/uL
(4.70-6.10)
Hgb 8.0 L D g/dL
(13.0-18.0)
Hct 23.1 L %
(39.0-52.0)
MCV 77.0 L fL
(80.0-94.0)
MCH 26.7 L pg
(27.0-31.0)
Plt Count 66 L D 10^3/uL
(130-400)
Abs Neuts (Manual) 11.1 H 10^3/uL
(1.4-6.5)
Segmented Neutrophils 95 H %
(42-75)
Band Neutrophils 4 H %
(0-3)
Lymphocytes (Manual) 0 L %
(20-51)
Monocytes (Manual) 1 L %
(2-9)
Sodium 124 L mmol/L
(135-145)
Potassium 6.7 H* mmol/L
(3.5-5.1)
Carbon Dioxide 15 L mmol/L
(22-30)
BUN 103 H* mg/dl
(9-20)
Creatinine 2.6 H mg/dL
(0.7-1.3)
Glucose 181 H mg/dl
(70-99)
Calcium 5.0 L* mg/dl
(8.4-10.2)
Magnesium 2.5 H mg/dl
(1.6-2.3)
Total Protein 4.4 L g/dl
(6.3-8.2)
Albumin 2.5 L g/dl
(3.5-5.0)
POC Glucose 180 H mg/dl
(70-99)
02/06/24 09:06
Vital Signs
Initial and Last Documented VS:
Initial Vital Signs
Temp Pulse Resp BP Pulse Ox
36.3 C 82 18 91/53 97
02/06/24 09:09 02/06/24 09:09 02/06/24 09:09 02/06/24 09:09 02/06/24 09:09
Last Documented Vital Signs
Temp Pulse Resp BP Pulse Ox
36.3 C 80 20 88/55 97
02/06/24 09:09 02/06/24 10:34 02/06/24 10:34 02/06/24 10:34 02/06/24 09:09
<TATIANA Mckee - Last Filed: 02/06/24 13:09>
MDM/Problems Addressed
Differential Diagnosis Includes:
not limited to: Acute dehydration renal failure electrolyte abnormality
MDM/Problems Addressed:
10:13am Patient is a 74-year-old male diagnosed with lymphoma had first round of chemo 4 days ago at [place] presents for weakness. Patient oncologist called and stated labs were abnormal and to come to the ER. Patient arrives very lethargic
sleeping however does respond and answer questions. Patient is cachectic dehydrated. Patient is hypertensive. Patient was given fluids. Patient's electrolytes are abnormal with sodium low at 124 potassium elevated 6.7 no peaked T waves on EKG.
BUN is 103 creatinine is 2.6. Case discussed ED physician hyperkalemic meds ordered.
Patient has generalized swelling including swelling to bilateral legs. Patient's right arm is swollen which reports is now increased since his PICC line was placed for chemotherapy on Sunday. Bedside ultrasound being performed now. Patient
is hypotensive fluids ordered.
I spoke with pt's oncologist DR Tsai .
REcommend d/c with DR Erum Daily . 10:20: d/c with transfer center now . I spoke with DR Daily and accepting if Dr Garcia . Cell for DR Daily whom I spoke to is [phone]
11:05: has decided to do hospice. I spoke with pt and at bedside and they have decided hospice. I spoke with [facility] hospice nurse . I spoke with DR Daily from [facility] and made her aware. transfer cancelled.
Chronic conditions affecting care:
lymphoma
<TATIANA Mckee - Last Filed: 02/06/24 13:09>
*Radiology
Radiology exam reviewed: radiology read reviewed
*Pulse Oximetry
Patient hypoxic: no
*EKG
Interpreted by ED Provider?: Yes
Interpretation: normal
Heart Rate: 83
Rate: normal
Rhythm: sinus
Ischemia: non-specific ST changes
*Critical Care Note
Total Time (30-74mins, 75-104mins- exclusive of procedures): Not Applicable
<Colby Sheikh DO - Last Filed: 02/06/24 14:11>
*Critical Care Note
Total Time (30-74mins, 75-104mins- exclusive of procedures): 40 minutes
comment:
The patient is critically ill in appearance. He is treated emergently for MARISELA with hyperkalemia. Vital signs closely monitored. He also been hypotensive and we considered using Levophed however ultimately decision was made by patient and family
to make him hospice level of care.
<TATIANA Mckee - Last Filed: 02/06/24 13:09>
Patient Management
Discussion with other providers: [employer] Cupid Analyst (SCHENECT[facility]Y oncologist as stated above and nephrology )
ED Attending Note
<TATIANA Mckee - Last Filed: 02/06/24 13:09>
-
Portions of this chart may have been created with voice recognition software.� Occasional wrong word or��sound alike� substitutions may have occurred due to the inherent limitations of voice recognition software.
<Colby Sheikh DO - Last Filed: 02/06/24 14:11>
ED Attending Note
Patient seen and examined by attending physician: Yes
I performed the substantive portion of visit, reviewed & personally made and approve the management plan that is documented in note by myself or BAYLEE.: Yes
ED Attending Note:
I evaluated patient at bedside. The patient is very ill-appearing. Consider transfer to [place]. Ultimately family wanted to pursue hospice. He is found to be hyponatremic and was given treatment for MARISELA with hyperkalemia as well. I am aware of
the nonocclusive thrombus noted in the right axillary vein, right basilic vein related to the PICC however at this point we will keep the PICC for now and defer further decisions to hospitalist service.
Discharge Plan
Departure
Patient Disposition: Admit
Date of Disposition: 02/06/24
Time of Disposition: 10:20
Admit to: Med/Surg
Admit to doctor: hospitalist
Presentation/result/management discussed w/ accepting MD/DO: Hospitalist
Patient with high blood pressure during this ER visit?: No
Condition: Fair
Covid-19: Not Applicable
Discharge Problem:
Acute renal failure (ARF), Acute dehydration, Acute hyponatremia, Acute hyperkalemia
Interventions
Interventions:
*Risk Screen - Suicide Last Done: 02/06/24 09:09
*General Assessment Last Done: 02/06/24 09:09
*Neglect/Abuse Screening Last Done: 02/06/24 09:09
--- NOTE | 2024-02-06 09:35 | VATNOTE ---
Called to draw labs from a port. At time of entering cubicle this IV nurse noted that client had a right arm dual lumen PICC line. states it was place at [facility] on Sunday02/02/24 and chemo was initiated on that day. At this time it is noted
that right arm has +4 pitting edema from elbow down to and extending into right hand. IV fluids stoppped. Peripheral IV site established in left arm . Blood work drawn. No chest x-ray has been obtained as of yet. Recommended chest x-ray to establish
location of PICC tip and right arm peripheral ultrasound to rule out DVT. Advised to not use PICC line until CXR and Ultrasound completed.
[2024-02-06 09:41] LABS: Hematocrit 23.1 % (39.0-52.0); Mean Corp Hgb Conc. 34.6 g/dL (33.0-37.0); Mean Corpuscular Hgb 26.7 pg (27.0-31.0); Red Cell Dist. Width 14.3 % (11.5-14.5); White Blood Cell Count 11.3 10^3/uL (4.8-10.8)
[2024-02-06 09:53] LABS: Troponin I < 0.012 ng/ml
[2024-02-06 09:59] LABS: ALT (SGPT) 21 U/L (0-50); AST (SGOT) 53 U/L (17-59); Albumin 2.5 g/dl (3.5-5.0); Alkaline Phosphatase 85 U/L (38-126); Blood Urea Nitrogen 103 mg/dl (9-20); Carbon Dioxide 15 mmol/L (22-30); Chloride 98 mmol/L (98-107); Glucose 181 mg/dl (70-99); Potassium 6.7 mmol/L (3.5-5.1); Sodium 124 mmol/L (135-145); Total Bilirubin 0.3 mg/dl (0.2-1.3); Total Protein 4.4 g/dl (6.3-8.2); eGFR 25.09
[2024-02-06 10:06] LABS: Absolute Neutrophils -Man Diff 11.1 10^3/uL (1.4-6.5); Band Neutrophils 4 % (0-3); Lymphocytes 0 % (20-51); Mean Platelet Volume 9.4 fL (7.4-10.4); Monocytes 1 % (2-9); Platelet Count 66 10^3/uL (130-400); Platelets Checked Yes; Segmented Neutrophils 95 % (42-75)
[2024-02-06 10:07] LABS: Acanthocytes 1+; Hypochromasia 1+; Normal RBC Morphology No; Ovalocytes FEW; Total Cells Counted 100
[2024-02-06 10:15] LABS: Magnesium 2.5 mg/dl (1.6-2.3)
[2024-02-06 10:38] LABS: Glucose - Point of Care 180 mg/dl (70-99)
[2024-02-06] MEDS: NSS 1000 IV (10:43)
[2024-02-06] MEDS: CALCIUM GLUCONATE 1000 MG IV (10:44)
[2024-02-06] MEDS: DEXTROSE 50% SYRINGE 25 GRAMS IV (10:47)
[2024-02-06] MEDS: NOVOLIN R 5 UNITS IV (10:54)
--- NOTE | 2024-02-06 11:18 | CM ---
Cm received call from hospice nurse Heidi. She is requesting that CM placed referral to Hospice. As per Heidi, ED provided updated hospice with plan. CM will remain available as needed.
Referral to hospice placed in Care Port.
--- NOTE | 2024-02-06 12:31 | HOSPNOTE ---
Called by CONSTRUCTION ANALYST who states that the family has opted for hospice care. Reviewed records and reviewed patient will be admitted inpatient hospice today. Spoke with GURU Frederick and requested referral. Notified hospice nurse who will come and complete SOC.
Updated admissions of inpatient hospice admission and requested bed on [address].
--- NOTE | 2024-02-06 12:56 | HPS.HSE ---
Addendum entered and electronically signed by Aldo Eugene MD 02/06/24 13:00:
Hold all daily oral medications.
Prostate cancer status post radiation
Essential hypertension
-Hold benazepril
GERD
-Hold famotidine, omeprazole
Hypercholesterolemia
-Hold statin
Original Note:
Family Physician
-
Family Physician: Yoly Roth
Chief Complaint
-
weakness
History of Present Illness
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 He had his first chemotherapy with R-CHOP at [facility] 4
days ago. reports patient was kept overnight and discharged on Sunday however he has been having gradual decline and weakness. He is drinking fluids but very weak. He is lethargic and sleeping but able to ask questions. No fevers nausea
vomiting or diarrhea or infectious symptoms.
He also developed bilateral lower extremity edema as well as right arm swelling in the vicinity of the PICC line over the past few days.
Medical History
Past Medical History
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
Past Surgical History: Reports None
Social History
Tobacco: Non-smoker
Alcohol: None
Drug: None
Family History
Family History: Not pertinent
Allergies / Home Medications
Allergies reflects when Allergies were last updated in [facility].
Home Medications with original date entered in [facility]
Allergy/Medication List:
Allergies
Allergy/AdvReac Type Severity Reaction Status Date / Time
No Known Allergies Allergy Verified 02/06/24 08:47
Home Medications
benazepril 20 mg tablet 20 mg PO DAILY 01/11/24
famotidine 20 mg tablet 20 mg PO HS 01/11/24
folic acid 400 mcg tablet 0.4 mg PO BID 01/11/24
omeprazole 20 mg capsule,delayed release 20 mg PO DAILY 01/11/24
pravastatin 20 mg tablet 20 mg PO DAILY 01/11/24
R-Chop 02/06/24
acetaminophen 325 mg tablet 975 mg PO Q6HPRN PRN mild pain and fever 02/06/24
acyclovir 400 mg tablet 400 mg PO BID 02/06/24
allopurinol 300 mg tablet 300 mg PO DAILY 02/06/24
montelukast 10 mg tablet 10 mg PO DAILY 02/06/24
ondansetron 8 mg disintegrating tablet 8 mg translingual TIDPRN PRN nausea 02/06/24
prednisone 50 mg tablet 100 mg PO .DAILY FOR 5 DAYS 02/06/24
prochlorperazine maleate 10 mg tablet 10 mg PO Q6HPRN PRN nausea 02/06/24
Review of Systems
-
History Source: Patient
A 12 point ROS was completed and negative except as noted: Yes
Constitutional: Reports No Symptoms
EENT: Reports No Symptoms
Respiratory: Reports No Symptoms
Cardiac: Reports No Symptoms
Abdomen/GI: Reports No Symptoms
: Reports No Symptoms
Musculoskeletal: Reports No Symptoms
Skin: Reports No Symptoms
Neurological: Reports No Symptoms
Endocrine: Reports No Symptoms
Hematologic/Lymphatic: Reports No Symptoms
Psych: Reports No Symptoms
Physical Exam
Vital Signs
Vital Signs
Temp Pulse Resp BP Pulse Ox
97.4 F 80 20 88/55 97
02/06/24 09:09 02/06/24 10:34 02/06/24 10:34 02/06/24 10:34 02/06/24 09:09
Physical Exam
General: Well Developed, Well Nourished and No Apparent Distress
HEENT: NormoCephalic, Moist mucous membranes and Atraumatic
Respiratory: Clear
Cardiac: S1/S2, Regular Rhythm and Peripheral Edema (RUQ swelling ); No Murmur or Rub
GI: Soft, Non Tender, Non Distended and Normal Bowel Sounds; No Organomegaly
Rectal: Deferred by Provider
Musculoskeletal: No Clubbing, No Cyanosis and No Edema
Skin: No Rash
Neuro: Nonfocal/grossly intact
Laboratory Results
-
02/06/24 09:06
Laboratory Results
Total Bilirubin 0.3 mg/dl (0.2-1.3) 02/06/24 09:06
AST 53 U/L (17-59) 02/06/24 09:06
ALT 21 U/L (0-50) 02/06/24 09:06
Alkaline Phosphatase 85 U/L (38-126) 02/06/24 09:06
Troponin I < 0.012 ng/ml 02/06/24 09:06
Data Reviewed
-
Lab Data: Labs Reviewed by me
Old Records: Reviewed
Impression/Plan
-
IMPRESSION:
PLAN:
# Likely tumor lysis syndrome from recent initiation of chemotherapy for lymphoma
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
# Severe hyperkalemia
# MARISELA
# Hypocalcemia
-Family decided to pursue hospice
-IV fluids, insulin dextrose, calcium gluconate initially given
-Transfer to [facility] was initially considered however family decided to pursue hospice
-Comfort medications with morphine, Zofran, Ativan,
-Case management for hospice involvement
# Right upper extremity nonocclusive thrombus within the right axillary vein/proximal right basilic vein associated with PICC line
-No treatment
# Anemia/thrombocytopenia secondary to chemotherapy
Comfort care
DVT prophylaxis�none
Regular diet
[2024-02-06 14:37] LABS: Glucose - Point of Care 199 mg/dl (70-99)
--- NOTE | 2024-02-06 14:43 | HOSPNOTE ---
Patient hospice consents signed. patient will meet GIP level of care criteria for hospice. Both patient and consent to hospice care after explanation of services. Patient had a PICC placed by [facility] on 02/01/25. Patient has lower arm edema.
Ultrasound shows non-occlusive thrombus in right axillary vein. Dr Eugene notified and pending CXR results for placement he has approved use of PICC if placement is confirmed.
Patient will require IV medications for pain management and comfort. Transfer to [address] [place] [address] shortly.
--- NOTE | 2024-02-06 15:52 | PTCARENOTE ---
Received pt from ED, pt pulled onto bed from stretcher, pt turned, wounds dressed and protective foams applied, vital taken, MD made aware to cancel residual orders that do not align with hospice care. Admission complete, family and pt made aware of
hospice plan of care. Pt resting comfortably in bed with call mayfield and family at bedside.
[2024-02-06] MEDS: ATIVAN 1 MG IV (17:31)
[2024-02-06] MEDS: NSS (PRESERVATIVE FREE) 0.5 ML IV (17:31)
[2024-02-06] MEDS: MORPHINE SULFATE 2 MG IV (23:03)
--- NOTE | 2024-02-07 07:22 | W.PN.HOSP.TC ---
Today's Communication/Plan
-
Comfort care
Assessment / Plan
Assessment / Plan
Physical exam:
General: Acute on chronically ill
HEENT: Normocephalic, Atraumatic
Respiratory: Clear to Auscultation; Negative Wheezes or Rhonchi
Cardiac: Regular Rhythm and S1/S2
GI: Soft, Nontender and Nondistended
Musculoskeletal: No joint swelling or pain
Neuro: Semi-obtunded, moves spontaneously all extremities
Psych: Limited judgment and insight
A/P:
PLAN:
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
# Severe hyperkalemia
# MARISELA
# Hypocalcemia
#Hypotension
#Anemia
#Leukocytosis
#Metabolic acidosis
#Lactic acidosis
# Severe protein calorie malnutrition
#Right upper extremity nonocclusive thrombus within the right axillary vein/proximal right basilic vein associated with PICC line
#Anemia/thrombocytopenia secondary to chemotherapy
#Prostate cancer status post radiation
#Essential hypertension
#GERD
#Hypercholesterolemia
Plan:
-Family decided to pursue hospice
-IV fluids, insulin dextrose, calcium gluconate initially given in the ED.
-Transfer to [place] was initially considered however family decided to pursue hospice
-Comfort medications with morphine, Zofran, Ativan, and added bowel regimen today
-Case management for hospice involvement
-Discussed with family at bedside today on 02/06 and they are in agreement with comfort care measures.
Anticipated Discharge: 24 - 48 hours
Subjective/Interval History
-
Date of Service: February 07, 2024
Patient minimally responsive. Looks frail
Objective Data
-
Vital Signs:
Vital Signs
Temp Pulse Resp BP Pulse Ox
97.1 F 88 14 78/48 77
02/06/24 21:03 02/06/24 21:03 02/06/24 21:03 02/06/24 21:03 02/06/24 21:03
I&O
02/06/24 02/07/24 02/08/24
06:59 06:59 06:59
Intake Total 0 / 0
Output Total 0 / 0
Balance 0 / 0
[2024-02-07 08:02] VITALS: BP 92/48
--- NOTE | 2024-02-07 08:48 | VNURNOTE ---
Chart reviewed. Prior to admit, patient was current with [facility]. Chart with [facility] has been placed on hold. Noted that patient is starting Hospice.
[2024-02-07] MEDS: MORPHINE SULFATE 2 MG IV (09:48)
--- NOTE | 2024-02-07 10:57 | HOSPNOTE ---
Visited with patient this morning. Hospital nurse and tech were providing personal care. Patient was given Morphine before care was provided. He did not indicate discomfort when repositioned and stated he did not have pain or anxiety. Patients
and friend were present. [facility] will visit this patient today. Patient will remain GIP due to needing frequent skilled assessment for titration of medications for optimal comfort. Support given to family and patient. Patient is aware he is
on Hospice.
--- NOTE | 2024-02-07 11:22 | CM ---
Reviewed the chart notes. Hospice is following the patient at this time. CM continues to be available to patient/family.
Plan: Hospice following while inpatient.
--- NOTE | 2024-02-07 12:37 | HOSPNOTE ---
Min was sleeping comfortably, with extended family present. He did not appear to be in pain. Spouse, Rosina, indicated that Min has [employer] background, but said they are not tenriism goers and a police department secretary visit is not needed. [facility]
provided emotional and spiritual support through presence, listening, dialogue, Scripture reading, and prayer from the [employer]. We commended Min to God, giving thanks for his life and love, and asking blessings of peace for all. Assured
the family of our on-going availability. [employer] [facility] will continue support through weekly visits, and will also check in on the weekend.
[2024-02-07 19:15] VITALS: BP 71/39
[2024-02-08 07:35] VITALS: BP 58/27
--- NOTE | 2024-02-08 09:30 | HOSPNOTE ---
Patient minimally responsive to verbal and tactile stimuli. Pale, resp rate 28/min patient shaking head no to offer of morphine for breathing. denies SOB or Pain. Facial expression does not support pain. Vital signs continue to decline BP 58/27 HR
71 RR 28 . Family at bedside, is spending the night and rarely leaving his side. Support provided and reminder that patient may need privacy to pass.
Remaining GIP level of care as appears imminent. Morphine x 1 given in last 24 hours IV.
--- NOTE | 2024-02-08 09:55 | CM ---
Reviewed the chart notes and spoke with fireworks inspector Zhanna. Patient remains in [facility] hospice.
--- NOTE | 2024-02-08 10:16 | W.PN.HOSP.TC ---
Addendum entered and electronically signed by Raleigh Eisenberg MD 02/09/24 09:21:
Stage 2 sacral pressure injury, POA
Original Note:
Today's Communication/Plan
-
Comfort measures
Assessment / Plan
Assessment / Plan
Physical exam:
General: Acute on chronically ill
HEENT: Normocephalic, Atraumatic
Respiratory: Clear to Auscultation; Negative Wheezes or Rhonchi
Cardiac: Regular Rhythm and S1/S2
GI: Soft, Nontender and Nondistended
Musculoskeletal: No joint swelling or pain
Neuro: Semi-obtunded, moves spontaneously all extremities
Psych: Limited judgment and insight
A/P:
PLAN:
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
# Severe hyperkalemia
# MARISELA
# Hypocalcemia
#Hypotension
#Anemia
#Leukocytosis
#Metabolic acidosis
#Lactic acidosis
# Severe protein calorie malnutrition
#Right upper extremity nonocclusive thrombus within the right axillary vein/proximal right basilic vein associated with PICC line
#Anemia/thrombocytopenia secondary to chemotherapy
#Prostate cancer status post radiation
#Essential hypertension
#GERD
#Hypercholesterolemia
Plan:
-Family decided to pursue hospice
-IV fluids, insulin dextrose, calcium gluconate initially given in the ED.
-Transfer to [place] was initially considered however family decided to pursue hospice
-Comfort medications with morphine, Zofran, Ativan, and added bowel regimen
-Case management for hospice involvement
-Discussed with family at bedside today on 02/07 and they are in agreement with comfort care measures.
-Will change morphine to every hour and if frequent enough will switch to IV morphine drip
Anticipated Discharge: 24 - 48 hours
Subjective/Interval History
-
Date of Service: February 08, 2024
Patient minimally responsive.
Objective Data
-
Vital Signs:
Vital Signs
Temp Pulse Resp BP Pulse Ox
97.4 F 71 16 58/27 85
02/08/24 07:35 02/08/24 07:35 02/08/24 07:35 02/08/24 07:35 02/08/24 07:35
I&O
02/07/24 02/08/24 02/09/24
06:59 06:59 06:59
Intake Total 0 / 0 0 / 0
Output Total 0 / 0 0 / 0
Balance 0 / 0 0 / 0
[2024-02-08] MEDS: MORPHINE SULFATE 2 MG IV ×2 (10:33→12:29)
[2024-02-08] MEDS: ROBINUL 0.2 MG IV (12:05)
--- NOTE | 2024-02-08 13:36 | PN.CDI ---
CDI
- -
CDI:
Physician Documentation Request
Admit Date: 02/07/24 07:16
Dear Doctor [place],
Patient admitted with tumor lysis syndrome from recent initiation of chemotherapy for lymphoma.
02/06/24 Nursing skin assessment, 'Stage 2 sacral pressure injury, POA.'
Physician documentation of the type and location of wounds is required for compliant documentation. Based on the above clinical findings and your assessment, please provide the following in your progress note:
Type (etiology) of ulcer/wound:
- Pressure (decubitus) ulcer
- Other
- Unable to determine
For a pressure ulcer, please also include the stage* of the ulcer:
- Stage 1 - Skin intact, non-blanchable redness
- Stage 2 - Partial thickness loss of dermis, includes intact or open blister
- Stage 3 - Full thickness tissue not including bone, tendon or muscle
- Stage 4 - Full thickness tissue loss, including exposed bone, tendon or muscle
- Unstageable - Full thickness loss in which the base of the ulcer is covered by slough (yellow, aviles, soto, green or brown) and/or eschar (aviles, brown or black) in the wound bed.
- Unable to determine
Use of terms such as suspected, likely, concern for, or probable (associated with a specific diagnosis that is being evaluated, monitored, or treated as if it exists) are acceptable and can be coded in the inpatient setting, when documented at the
time of discharge.
Thank you,
Kena HOLLINGSWORTH, RN,CCDS
CDI Specialist
Available via [facility] text
Please use your independent medical judgment in providing your response.
*Source: National Pressure Ulcer Advisory Panel (NPUAP)
--- NOTE | 2024-02-08 15:05 | W.PN.DEATH ---
Pronouncement of
-
Called to see patient to pronounce.
No spontaneous heart tones or respirations noted.
Patient not responsive to verbal stimuli.
Patient is pronounced .
Time of : 14:28
Date of : 02/08/24
Cause of : Tumor lysis syndrome
Lymphoma
Hyperkalemia
Family Notified: Yes (family at bedside. )
--- NOTE | 2024-02-09 08:42 | W.DCSUMMARY ---
Discharge Summary
Discharge Data
Date of Admission: 02/07/24
Date of Discharge: 02/08/24
-
Pending Results: No
Hospital Course
Patient is 74 years old male with triple hit lymphoma involving any groin neck and prostate cancer with radiation hypertension GERD hypercholesterolemia came in with generalized weakness and multiple metabolic derangement including acute kidney
injury, hyperkalemia, metabolic acidosis, hyponatremia, hypocalcemia, hypermagnesemia, pancytopenia. His presentation was consistent with tumor lysis syndrome and discussions took place with patient and family about transferring to [place] where he
has received his recent treatment but they declined transfer and they wanted to pursue comfort care measures. Patient was placed on comfort care medications and he was on comfort care. Patient on 02/08/2024 surrounded by his loved ones
as [id number]. May his soul rest in peace.
Discharge Plan
-
Patient Disposition:
Date/Time
Date/Time: 02/08/24 14:28
Discharge Date and Time
Discharge Date/Time: 02/08/24 14:28
Print Language: MACEDONIAN
== END 2024-02-08 14:28 | disposition expired | DRG 682 ==
LOC: 2 NORTH 07:16
PROVIDERS: ADMITTING PHYSICIAN Hospitalist; ATTENDING PHYSICIAN Hospitalist; EMERGENCY PHYSICIAN Emergency Medicine; FAMILY PHYSICIAN Family Medicine
DX: E88.3 Tumor lysis syndrome (principal); D61.1 Drug-induced aplastic anemia; E43 Unspecified severe protein-calorie malnutrition; C85.90 Non-Hodgkin lymphoma, unspecified, unspecified site; R64 Cachexia; E87.1 Hypo-osmolality and hyponatremia; I82.A11 Acute embolism and thrombosis of right axillary vein; E87.20 Acidosis, unspecified; D61.818 Other pancytopenia; N17.9 Acute kidney failure, unspecified; Z51.5 Encounter for palliative care; E86.0 Dehydration; D64.81 Anemia due to antineoplastic chemotherapy; D69.59 Other secondary thrombocytopenia; T45.1X5A Adverse effect of antineoplastic and immunosuppressive drugs, initial encounter; E78.00 Pure hypercholesterolemia, unspecified; I10 Essential (primary) hypertension; K21.9 Gastro-esophageal reflux disease without esophagitis; D72.829 Elevated white blood cell count, unspecified; L89.152 Pressure ulcer of sacral region, stage 2; M79.89 Other specified soft tissue disorders; R53.1 Weakness; R60.0 Localized edema; E83.41 Hypermagnesemia; E83.51 Hypocalcemia; R53.83 Other fatigue; E87.5 Hyperkalemia; I95.9 Hypotension, unspecified; Y92.9 Unspecified place or not applicable; Z66 Do not resuscitate; Z68.24 Body mass index [BMI] 24.0-24.9, adult; Z92.21 Personal history of antineoplastic chemotherapy; Z92.3 Personal history of irradiation; Z85.46 Personal history of malignant neoplasm of prostate
CPT/HCPCS: 71045; 80053; 82962; 83735; 84484; 85025; 93005; 93971; 96361; 96374; 96375; 99291